=== PATIENT | male | born 1955 | race Caucasian/White ===

== ENCOUNTER 2020-02-12 14:43 | Inpatient (IN) | payer MEDICAID, MEDICARE ==
[2020-02-12] MEDS ORDERED: Sodium Chloride 0.9% 10 ML Syringe FLUSH PRN ×2 (14:51→21:28)
--- NOTE | 2020-02-12 14:59 | EDM.PDOC ---
ED HPI GENERAL MEDICAL PROBLEM - General Chief Complaint: Neuro Symptoms/Deficits Stated Complaint: MEDICAL VIA [facility] Time Seen by Provider: 02/12/20 14:45 Source of Information: Reports: Patient, EMS History Limitations: Reports: Other (minimal records, patient not a good historian) - History of Present Illness INITIAL COMMENTS - FREE TEXT/NARRATIVE: 65 yo male transported by EMS to the ER today for possible new onset L facial droop starting at noon today. He is a relatively new resident of [facility] who has a pHx of a TBA, and a AAA. No other abnormalities reported by staff or EMS. Patient does not have any complaints that are new. He has chronic low back pain. Is a full code. Has a pHx of carotid endarterectomy. 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 (see below) (none) - Related Data Allergies Allergy/AdvReac Type Severity Reaction Status Date / Time ciprofloxacin [From Cipro] Allergy Other Verified 02/12/20 19:31 Home Meds: Home Meds Albuterol/Ipratropium [Combivent Respimat] 1 puff IH QID 02/12/20 [History] Cholecalciferol (Vitamin D3) [Vitamin D] 1,000 units PO DAILY 02/12/20 [History] Clopidogrel Bisulfate [Plavix] 75 mg PO DAILY 02/12/20 [History] DULoxetine [Cymbalta] 60 mg PO DAILY 02/12/20 [History] Finasteride 5 mg PO DAILY 02/12/20 [History] Ibuprofen [Motrin] 600 mg PO Q8H PRN 02/12/20 [History] Lidocaine 5% [Lidoderm 5%] 1 patch TOP Q12HR 02/12/20 [History] Mirtazapine [Remeron] 15 mg PO BEDTIME 02/12/20 [History] Tiotropium [Spiriva] 2 puff INH DAILY 02/12/20 [History] lisinopriL [Lisinopril] 10 mg PO DAILY 02/12/20 [History] risperiDONE [RisperiDAL] 3 mg PO BID 02/12/20 [History] ED ROS GENERAL - Review of Systems Review Of Systems: See Below Constitutional: Reports: No Symptoms HEENT: Reports: No Symptoms Respiratory: Reports: No Symptoms Cardiovascular: Reports: No Symptoms GI/Abdominal: Reports: No Symptoms : Reports: No Symptoms Musculoskeletal: Reports: No Symptoms Skin: Reports: No Symptoms Neurological: Reports: Other (L facial droop ? new) ED EXAM, NEURO - Physical Exam Exam: See Below Exam Limited By: Uncooperative (not fully cooperative) General Appearance: Alert, WD/WN, No Apparent Distress Eye Exam: Bilateral Eye: Normal Inspection Ears: Normal External Exam, Normal Canal, Hearing Grossly Normal Nose: Normal Inspection, No Blood Throat/Mouth: Normal Inspection, Normal Lips, Normal Oropharynx, Normal Voice, No Airway Compromise Head Exam: Atraumatic, Other (L facial droop) Neck: Normal Inspection, Non-Tender Respiratory/Chest: No Respiratory Distress, Lungs Clear, Normal Breath Sounds, No Accessory Muscle Use Cardiovascular: Regular Rate, Rhythm, No Edema GI/Abdominal: Normal Bowel Sounds, Soft, Non-Tender, No Distention Neurological: Alert, Oriented x 3, Other (L facial droop, weak gag reflex) Back Exam: Normal Inspection Extremities: Normal Inspection, Normal Range of Motion, Non-Tender, No Pedal Edema Psychiatric: Normal Affect, Normal Mood Skin Exam: Warm, Dry, Intact, Normal Color, No Rash #1 Interpretation EKG Date: 02/12/20 Time: 17:15 Rhythm: NSR Rate (Beats/Min): 70 Gordon: Normal P-Wave: Present (prolonged [place] interval.) QRS: Normal (poor R wave progression anterior leads.) ST-T: Normal QT: Normal Comparison: NA - No Prior EKG Course - Vital Signs Text/Narrative:: Dr. Luu called @ 1940h Last Recorded V/S: Last Vital Signs Temp 37.3 C 02/12/20 19:26 Pulse 84 02/12/20 19:26 Resp 27 H 02/12/20 19:26 BP 127/77 02/12/20 19:26 Pulse Ox 92 L 02/12/20 19:26 - Orders/Labs/Meds Orders: Active Orders 24 hr Category Date Time Status Cardiac Monitoring [RC] .As Directed Care 02/12/20 14:50 Active EKG Documentation Completion [RC] ASDIRECTED Care 02/12/20 16:57 Active DRUG SCREEN, URINE [URCHEM] Stat Lab 02/12/20 18:27 Ordered UA W/MICROSCOPIC [URIN] Stat Lab 02/12/20 14:49 Ordered Iopamidol [Isovue-370 (76%)] Med 02/12/20 15:45 Active 100 ml IV . DIRECTED Lactated Ringers [Ringers, Lactated] 1,000 ml Med 02/12/20 17:45 Active IV ASDIRECTED Ondansetron [Zofran] Med 02/12/20 19:46 Once 4 mg IVPUSH ONETIME ONE Sodium Chloride 0.9% [Normal Saline] 100 ml Med 02/12/20 15:45 Active IV ASDIRECTED Sodium Chloride 0.9% [Saline Flush] Med 02/12/20 14:51 Active 10 ml FLUSH ASDIRECTED PRN Saline Lock Insert [OM.PC] Routine Oth 02/12/20 14:51 Ordered EKG 12 Lead [EK] Routine Ther 02/12/20 16:57 Ordered Medication Orders Sodium Chloride (Normal Saline) 100 mls @ 3 mls/sec IV ASDIRECTED ALFREDITO Last Admin: 02/12/20 16:06 Dose: 4 mls/sec Documented by: REMY Lactated Ringer's (Ringers, Lactated) 1,000 mls @ 150 mls/hr IV ASDIRECTED ALFREDITO Iopamidol (Isovue-370 (76%)) 100 ml IV . DIRECTED ALFREDITO Last Admin: 02/12/20 16:06 Dose: 100 ml Documented by: REMY Ondansetron HCl (Zofran) 4 mg IVPUSH ONETIME ONE Stop: 02/12/20 19:47 Sodium Chloride (Saline Flush) 10 ml FLUSH ASDIRECTED PRN PRN Reason: Keep Vein Open Last Admin: 02/12/20 16:06 Dose: 10 ml Documented by: REMY Labs: Laboratory Tests 02/12/20 02/12/20 02/12/20 Range/Units 14:55 14:55 18:15 WBC 7.0 (4.5-11.0) K/uL RBC 4.87 (4.30-5.90) M/uL Hgb 14.6 (12.0-15.0) g/dL Hct 44.1 (40.0-54.0) % MCV 91 (80-98) fL MCH 30 (27-31) pg MCHC 33 (32-36) % Plt Count 250 (150-400) K/uL Sodium 138 L (140-148) mmol/L Potassium 4.4 (3.6-5.2) mmol/L Chloride 104 (100-108) mmol/L Carbon Dioxide 23 (21-32) mmol/L Anion Gap 15.4 H (5.0-14.0) mmol/L BUN 35 H (7-18) mg/dL Creatinine 1.4 H (0.8-1.3) mg/dL Est Cr Clr Drug Dosing TNP Estimated GFR (MDRD) 51 L (>60) Glucose 96 (74-106) mg/dL Calcium 9.1 (8.5-10.1) mg/dL Troponin I < 0.017 (0.000-0.056) ng/mL Ethyl Alcohol mg/dL SARS-CoV-2 RNA (KAROLYN) Positive H (NEGATIVE) 02/12/20 Range/Units 18:27 WBC (4.5-11.0) K/uL RBC (4.30-5.90) M/uL Hgb (12.0-15.0) g/dL Hct (40.0-54.0) % MCV (80-98) fL MCH (27-31) pg MCHC (32-36) % Plt Count (150-400) K/uL Sodium (140-148) mmol/L Potassium (3.6-5.2) mmol/L Chloride (100-108) mmol/L Carbon Dioxide (21-32) mmol/L Anion Gap (5.0-14.0) mmol/L BUN (7-18) mg/dL Creatinine (0.8-1.3) mg/dL Est Cr Clr Drug Dosing Estimated GFR (MDRD) (>60) Glucose (74-106) mg/dL Calcium (8.5-10.1) mg/dL Troponin I (0.000-0.056) ng/mL Ethyl Alcohol 6 mg/dL SARS-CoV-2 RNA (KAROLYN) (NEGATIVE) Meds: Medications Generic Name Dose Route Start Last Admin Trade Name Freq PRN Reason Stop Dose Admin Sodium Chloride 100 mls @ 3 mls/sec 02/12/20 15:45 02/12/20 16:06 Normal Saline IV 4 mls/sec ASDIRECTED ALFREDITO Administration Lactated Ringer's 1,000 mls @ 150 mls/hr 02/12/20 17:45 Ringers, Lactated IV ASDIRECTED ALFREDITO Iopamidol 100 ml 02/12/20 15:45 02/12/20 16:06 Isovue-370 (76%) IV 100 ml . DIRECTED ALFREDITO Administration Ondansetron HCl 4 mg 02/12/20 19:46 Zofran IVPUSH 02/12/20 19:47 ONETIME ONE Sodium Chloride 10 ml 02/12/20 14:51 02/12/20 16:06 Saline Flush FLUSH 10 ml ASDIRECTED PRN Administration Keep Vein Open Discontinued Medications Generic Name Dose Route Start Last Admin Trade Name Freq PRN Reason Stop Dose Admin Nystatin 1 gm 02/12/20 19:04 Nystop TOP 02/12/20 19:05 NOW STA - Radiology Interpretation Free Text/Narrative:: Head CT scan-IMPRESSION: 1. No evidence of acute cortical infarct. No intracranial hemorrhage. 2. Large regions of encephalomalacia in the right inferior frontal lobe and right inferior temporal lobe may be secondary to chronic contusions versus infarcts. Chronic infarcts in the basal ganglia, caudate nuclei, and alexander radiata. 3. Moderate parenchymal volume loss and advanced chronic microangiopathic white matter changes. Please note that all CT scans at this facility use dose modulation, iterative r econstruction, and/or weight-based dosing when appropriate to reduce radiation dose to as low as reasonably achievable. Dictated by Tramaine Morris MD @ Feb 12 2020 4:03PM Angio Head/neck: Scattered atherosclerotic changes, most severe in the right carotid bulb where there is a severe stenosis of the carotid bulb with irregular luminal narrowing. No large vessel occlusions. 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 Read by: Chandu Dodge MD @ 02/12/2020 16:58:07 CT Results Date: 02/12/20 CT Results Time: 17:02 - Re-Assessments/Exams Free Text/Narrative Re-Assessment/Exam: 02/12/20 16:58 Daughter here, Sohail told her he has a pain in his chest, will get a stat EKG. She thinks he is more sleepy and sluggish than normal. 02/12/20 16:58 Free Text/Narrative Re-Assessment/Exam: 02/12/20 18:29 facial drooping came and went a few times during his stay, his level of alertness also seemed to vary back and forth. Departure - Departure Time of Disposition: 21:55 Disposition: Refer to Observation Clinical Impression: COVID-19, Neurological impairment, Mild dehydration - Discharge Information *PRESCRIPTION DRUG MONITORING PROGRAM REVIEWED*: No *COPY OF PRESCRIPTION DRUG MONITORING REPORT IN PATIENT GALINA: No Referrals: PCP,None [Primary Care Provider] - Forms: ED Department Discharge Sepsis Event Note (ED) - Focused Exam Vital Signs: Vital Signs Temp Pulse Resp BP Pulse Ox 02/12/20 19:26 37.3 C 84 27 H 127/77 92 L 02/12/20 16:16 37.3 C 70 20 117/73 97 02/12/20 16:11 37.3 C 69 21 H 117/73 96 - My Orders Last 24 Hours: My Active Orders 02/12/20 14:49 UA W/MICROSCOPIC [URIN] Stat 02/12/20 14:50 Cardiac Monitoring [RC] .As Directed 02/12/20 14:51 Sodium Chloride 0.9% [Saline Flush] 10 ml FLUSH ASDIRECTED PRN Saline Lock Insert [OM.PC] Routine 02/12/20 15:45 Iopamidol [Isovue-370 (76%)] 100 ml IV . DIRECTED Sodium Chloride 0.9% [Normal Saline] 100 ml IV ASDIRECTED 02/12/20 16:57 EKG Documentation Completion [RC] ASDIRECTED EKG 12 Lead [EK] Routine 02/12/20 17:45 Lactated Ringers [Ringers, Lactated] 1,000 ml IV ASDIRECTED 02/12/20 18:27 DRUG SCREEN, URINE [URCHEM] Stat 02/12/20 19:46 Ondansetron [Zofran] 4 mg IVPUSH ONETIME ONE - Assessment/Plan Last 24 Hours: My Active Orders 02/12/20 14:49 UA W/MICROSCOPIC [URIN] Stat 02/12/20 14:50 Cardiac Monitoring [RC] .As Directed 02/12/20 14:51 Sodium Chloride 0.9% [Saline Flush] 10 ml FLUSH ASDIRECTED PRN Saline Lock Insert [OM.PC] Routine 02/12/20 15:45 Iopamidol [Isovue-370 (76%)] 100 ml IV . DIRECTED Sodium Chloride 0.9% [Normal Saline] 100 ml IV ASDIRECTED 02/12/20 16:57 EKG Documentation Completion [RC] ASDIRECTED EKG 12 Lead [EK] Routine 02/12/20 17:45 Lactated Ringers [Ringers, Lactated] 1,000 ml IV ASDIRECTED 02/12/20 18:27 DRUG SCREEN, URINE [URCHEM] Stat 02/12/20 19:46 Ondansetron [Zofran] 4 mg IVPUSH ONETIME ONE
[2020-02-12] MEDS ORDERED: Iopamidol 755 Mg/ML 100 ML Bottle IV SCH (15:45)
[2020-02-12] MEDS ORDERED: Sodium Chloride 0.9% 100 ML IV SCH (15:45)
--- NOTE | 2020-02-12 16:08 | CRLCT ---
INDICATION: Stroke alert. Left facial droop. TECHNIQUE: CT of the head without contrast. Coronal and sagittal reformats. Bone and soft tissue algorithms. COMPARISON: No prior studies available for comparison at this institution. FINDINGS: No acute intracranial hemorrhage or extra-axial collection. No evidence of acute cortical infarction. Large region of encephalomalacia involving the right inferior frontal lobe and right inferior temporal lobe may be secondary to chronic contusions versus infarcts. There is encephalomalacia to lesser extent in the left inferior frontal lobe. Chronic infarcts in the bilateral basal ganglia, bilateral caudate nuclei and alexander radiata. No mass effect or midline shift. Moderate generalized cerebral/cerebellar parenchymal volume loss. Moderate regions of decreased attenuation within the periventricular and subcortical white matter of both cerebral hemispheres most likely reflects chronic microvascular ischemic disease and age related change in this patient. Vascular calcifications within the carotid siphons. Orbital contents are normal. No calvarial fractures. No lytic or sclerotic osseous lesions within the calvarium or skull base. Scalp and other imaged soft tissue structures are normal. Mastoid air cells are clear. IMPRESSION: 1. No evidence of acute cortical infarct. No intracranial hemorrhage. 2. Large regions of encephalomalacia in the right inferior frontal lobe and right inferior temporal lobe may be secondary to chronic contusions versus infarcts. Chronic infarcts in the basal ganglia, caudate nuclei, and alexander radiata. 3. Moderate parenchymal volume loss and advanced chronic microangiopathic white matter changes. Please note that all CT scans at this facility use dose modulation, iterative reconstruction, and/or weight-based dosing when appropriate to reduce radiation dose to as low as reasonably achievable. Dictated by Tramaine Morris MD @ Feb 12 2020 4:03PM Signed by Dr. Tramaine Morris @ Feb 12 2020 4:08PM
--- NOTE | 2020-02-12 16:58 | CRLCT ---
INDICATION: Left facial droop. TECHNIQUE: After standard noncontrast head CT, high resolution axial CT images acquired through the head and neck following rapid intravenous administration of iodinated contrast. Multiplanar MIPS of cranial and cervical vasculature performed. FINDINGS: There is no intracranial hemorrhage or fluid collection. Old lacunar infarcts are noted in the basal ganglia and deep white matter bilaterally. There is marked brain parenchymal volume loss. There is encephalomalacia in the right frontal lobe and anterior right temporal lobe, probably from an old traumatic injury. There are extensive nonspecific white matter hypodensities commonly seen with chronic small vessel ischemic disease. The gonzalez-white matter differentiation is otherwise grossly maintained. The ventricles and basal cisterns are clear. Angiographically, there is scattered intracranial atherosclerotic disease. There is no significant intracranial stenosis. There is no large vessel occlusion. There is a possible small anterior communicating artery aneurysm, difficult to discern due to artifact. In the neck, there is a large soft plaque in the distal right common carotid artery that results in a severe stenosis, greater than 70 percent by NASCET criteria. Additionally, there is a severe stenosis of the origin of the right internal carotid artery due to soft plaque resulting in a 99 percent stenosis by NASCET criteria with narrowing of the distal vasculature (string sign). There is no significant left carotid stenosis. There is no significant vertebral artery stenosis or dissection. 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 Severe emphysematous changes are present in the visualized lung apices. IMPRESSION: 1. Scattered intracranial atherosclerotic disease with no large vessel occlusion. 2. Severe right carotid stenosis with string sign, 99 percent by NASCET criteria. 3. 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 4. Severe emphysema. 5. Old right frontal and temporal encephalomalacia, probably old trauma. 6. Extensive chronic small vessel ischemic disease and old lacunar infarcts. 7. 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 Please note that all CT scans at this facility use dose modulation, iterative reconstruction, and/or weight-based dosing when appropriate to reduce radiation dose to as low as reasonably achievable. Dictated by Macario Boyce MD @ Feb 13 2020 10:38AM Signed by Dr. Macario Boyce @ Feb 13 2020 10:51AM
[2020-02-12] MEDS ORDERED: Lactated Ringers 1,000 ML IV SCH (17:45)
[2020-02-12] MEDS ORDERED: Nystatin Topical Powder 15 GM Bottle TOP STA (19:04)
[2020-02-12] MEDS ORDERED: Ondansetron 4 MG/2 ML SDV IVPUSH ONE (19:46)
--- NOTE | 2020-02-12 21:07 | PCM.HP.2 ---
H&P History of Present Illness - General Date of Service: 02/12/20 Admit Problem/Dx: Admission Diagnosis/Problem Admission Diagnosis/Problem TIA, Transient ischemic attack Source of Information: Patient, Family, Provider, RN Notes Reviewed History Limitations: Reports: Other (Cognitive impairment secondary to dementia) - History of Present Illness Initial Comments - Free Text/Narative: Mr. Kern is a 65-year-old gentleman who was admitted to observation status through the emergency department for monitoring of neurologic status and positive COVID-19. He has a history of multiple severe medical problems including coronary artery disease, status post surgical repair of aortic aneurysm, traumatic brain injury, cerebrovascular disease status post left carotid endarterectomy, and COPD. He also has a known history of early onset dementia which has progressed significantly over the past few months. Today he was noted by staff at the assisted living to have left-sided weakness and was brought to the emergency department for further evaluation. He was noted to [place] left upper and lower extremity weakness as well as left facial weakness. Weakness has resolved. Covid testing done in the emergency department is positive, currently no obvious symptoms or hypoxia. CT scan of the head showed evidence of old damage from traumatic brain injury as well as previous CVAs. CTA of the neck and brain shows evidence of severe right carotid stenosis. Findings have been discussed with the neurologist on-call in [place], they recommended obtaining MRI in the morning. If the MRI shows evidence of acute right sided CVA, then they would consider accepting him in transfer for treatment of the right carotid stenosis. Otherwise the stenosis could be addressed on an outpatient basis. I have discussed current findings and reviewed them with his daughter who is his guardian. She is decided that he should be DNR/DNI and feels that this is consistent with his previously expressed wishes. She is unsure about how to proceed as far as evaluation of his cerebrovascular disease; aggressive intervention versus comfort cares. - Related Data Allergies/Adverse Reactions: Allergies Allergy/AdvReac Type Severity Reaction Status Date / Time ciprofloxacin [From Cipro] Allergy Other Verified 02/12/20 19:31 Home Medications: Home Meds Albuterol/Ipratropium [Combivent Respimat] 1 puff IH QID 02/12/20 [History] Cholecalciferol (Vitamin D3) [Vitamin D] 1,000 units PO DAILY 02/12/20 [History] Clopidogrel Bisulfate [Plavix] 75 mg PO DAILY 02/12/20 [History] DULoxetine [Cymbalta] 60 mg PO DAILY 02/12/20 [History] Finasteride 5 mg PO DAILY 02/12/20 [History] Ibuprofen [Motrin] 600 mg PO Q8H PRN 02/12/20 [History] Lidocaine 5% [Lidoderm 5%] 1 patch TOP Q12HR 02/12/20 [History] Mirtazapine [Remeron] 15 mg PO BEDTIME 02/12/20 [History] Tiotropium [Spiriva] 2 puff INH DAILY 02/12/20 [History] lisinopriL [Lisinopril] 10 mg PO DAILY 02/12/20 [History] risperiDONE [RisperiDAL] 3 mg PO BID 02/12/20 [History] Past Medical History Cardiovascular History: Reports: CAD, Other (See Below) Other Cardiovascular History: cardiac stenosis Respiratory History: Reports: COPD Musculoskeletal History: Reports: Back Pain, Chronic, Fracture Neurological History: Reports: Brain Injury Psychiatric History: Reports: Aggressive/Hostile Behaviors, Alzheimers Disease, PTSD - Past Surgical History Cardiovascular Surgical History: Reports: Aneurysm Social & Family History - Tobacco Use Tobacco Use Status *Q: Unknown Ever Used Tobacco H&P Review of Systems - Review of Systems: Review Of Systems: See Below General: Reports: ROS unobtainable (Cognitive impairment secondary to dementia) Exam - Exam Exam: See Below - Vital Signs Vital Signs: Last Vital Signs Temp 98.8 F 02/12/20 20:16 Pulse 72 02/12/20 20:16 Resp 16 02/12/20 20:16 BP 128/67 02/12/20 20:16 Pulse Ox 92 L 02/12/20 20:16 Weight: 189 lb - Exam Quality Assessment: DVT Prophylaxis General: Alert, Cooperative, Mild Distress. No: Oriented HEENT: Conjunctiva Clear, Hearing Intact, Mucosa Moist & [place], Normal Nasal Septum, Posterior Pharynx Clear, Pupils Equal Neck: Supple, Trachea Midline Lungs: Decreased Breath Sounds. No: Crackles, Rales, Rhonchi, Wheezing Cardiovascular: Regular Rate, Regular Rhythm, Normal S1, Normal S2. No: Systolic Murmur, Diastolic Murmur GI/Abdominal Exam: Soft, Non-Tender, No Organomegaly, No Distention Back Exam: Normal Inspection, Vertebral Tenderness Extremities: Normal Inspection, Non-Tender, No Pedal Edema Skin: Warm, Dry, Intact Neurological: Cranial Nerves Intact, Strength Equal Bilateral, Normal Speech, Normal Tone, Sensation Intact. No: Focal Deficit Neuro Extensive - Mental Status: Alert, Normal Mood/Affect, Disorientation to Place, Disorientation to Time, Memory Loss-Remote Events, Memory Loss-Recent Events. No: Oriented x3, Normal Cognition, Memory Intact - Patient Data Lab Results Last 24 hrs: Laboratory Results - last 24 hr 02/12/20 02/12/20 02/12/20 Range/Units 14:55 14:55 18:15 WBC 7.0 (4.5-11.0) K/uL RBC 4.87 (4.30-5.90) M/uL Hgb 14.6 (12.0-15.0) g/dL Hct 44.1 (40.0-54.0) % MCV 91 (80-98) fL MCH 30 (27-31) pg MCHC 33 (32-36) % Plt Count 250 (150-400) K/uL Sodium 138 L (140-148) mmol/L Potassium 4.4 (3.6-5.2) mmol/L Chloride 104 (100-108) mmol/L Carbon Dioxide 23 (21-32) mmol/L Anion Gap 15.4 H (5.0-14.0) mmol/L BUN 35 H (7-18) mg/dL Creatinine 1.4 H (0.8-1.3) mg/dL Est Cr Clr Drug Dosing TNP Estimated GFR (MDRD) 51 L (>60) Glucose 96 (74-106) mg/dL Calcium 9.1 (8.5-10.1) mg/dL Troponin I < 0.017 (0.000-0.056) ng/mL Ethyl Alcohol mg/dL SARS-CoV-2 RNA (KAROLYN) Positive H (NEGATIVE) 02/12/20 Range/Units 18:27 WBC (4.5-11.0) K/uL RBC (4.30-5.90) M/uL Hgb (12.0-15.0) g/dL Hct (40.0-54.0) % MCV (80-98) fL MCH (27-31) pg MCHC (32-36) % Plt Count (150-400) K/uL Sodium (140-148) mmol/L Potassium (3.6-5.2) mmol/L Chloride (100-108) mmol/L Carbon Dioxide (21-32) mmol/L Anion Gap (5.0-14.0) mmol/L BUN (7-18) mg/dL Creatinine (0.8-1.3) mg/dL Est Cr Clr Drug Dosing Estimated GFR (MDRD) (>60) Glucose (74-106) mg/dL Calcium (8.5-10.1) mg/dL Troponin I (0.000-0.056) ng/mL Ethyl Alcohol 6 mg/dL SARS-CoV-2 RNA (KAROLYN) (NEGATIVE) Result Diagrams: 02/12/20 14:55 02/12/20 14:55 Sepsis Event Note - Evaluation Sepsis Screening Result: No Definite Risk - Focused Exam Vital Signs: Vital Signs Temp Pulse Resp BP Pulse Ox 02/12/20 20:16 98.8 F 72 16 128/67 92 L 02/12/20 19:26 99.2 F 84 27 H 127/77 92 L 02/12/20 16:16 99.1 F 70 20 117/73 97 02/12/20 16:11 99.1 F 69 21 H 117/73 96 *Q Meaningful Use (ADM) - VTE Risk Assess *Q Each Risk Factor Represents 1 Point: Abnormal Pulmonary Function (COPD) Total Score 1 Point Risk Factors: 1 Each Risk Factor Represents 2 Points: Age 60 - 74 Years Total Score 2 Point Risk Factors: 2 Each Risk Factor Represents 3 Points: None Total Score 3 Point Risk Factors: 0 Each Risk Factor Represents 5 Points: None Total Score 5 Point Risk Factors: 0 Venous Thromboembolism Risk Factor Score *Q: 3 Problem List Initiated/Reviewed/Updated: Yes Orders Last 24hrs: Active Orders 24 hr Category Date Time Status Patient Status Manage Transfer [TRANSFER] Routine ADT 02/12/20 20:04 Active Cardiac Monitoring [RC] .As Directed Care 02/12/20 14:50 Active EKG Documentation Completion [RC] ASDIRECTED Care 02/12/20 16:57 Active DRUG SCREEN, URINE [URCHEM] Stat Lab 02/12/20 18:27 Ordered UA W/MICROSCOPIC [URIN] Stat Lab 02/12/20 14:49 Ordered Iopamidol [Isovue-370 (76%)] Med 02/12/20 15:45 Active 100 ml IV . DIRECTED Lactated Ringers [Ringers, Lactated] 1,000 ml Med 02/12/20 17:45 Active IV ASDIRECTED Sodium Chloride 0.9% [Normal Saline] 100 ml Med 02/12/20 15:45 Active IV ASDIRECTED Sodium Chloride 0.9% [Saline Flush] Med 02/12/20 14:51 Active 10 ml FLUSH ASDIRECTED PRN Saline Lock Insert [OM.PC] Routine Oth 02/12/20 14:51 Ordered Resuscitation Status Routine Resus Stat 02/12/20 20:56 Ordered EKG 12 Lead [EK] Routine Ther 02/12/20 16:57 Ordered Medication Orders Sodium Chloride (Normal Saline) 100 mls @ 3 mls/sec IV ASDIRECTED ALFREDITO Last Admin: 02/12/20 16:06 Dose: 4 mls/sec Documented by: REMY Lactated Ringer's (Ringers, Lactated) 1,000 mls @ 150 mls/hr IV ASDIRECTED ALFREDITO Iopamidol (Isovue-370 (76%)) 100 ml IV . DIRECTED ALFREDITO Last Admin: 02/12/20 16:06 Dose: 100 ml Documented by: REMY Sodium Chloride (Saline Flush) 10 ml FLUSH ASDIRECTED PRN PRN Reason: Keep Vein Open Last Admin: 02/12/20 16:06 Dose: 10 ml Documented by: REMY Assessment/Plan Comment:: ASSESSMENT AND PLAN TIA-transient left-sided weakness today, associated with severe right carotid stenosis. He will be monitored overnight, with MRI in a.m. Family is not sure if they want to proceed with aggressive intervention and evaluation, they will be discussing this further. -Continue Plavix -Aspirin 81 mg p.o. daily -MRI of the brain with contrast in the a.m. -Further discussion with family concerning evaluation and management -Neurochecks every 4 hours [id number] no active symptoms or hypoxia -Supportive care SEVERE RIGHT CAROTID STENOSIS -Evaluation and management as above MAINTENANCE ISSUES -DVT prophylaxis; Lovenox 40 mg subcu daily -GI prophylaxis; not indicated -Son catheter; not indicated -Nutrition; 2 g sodium diet -Nicotine dependence; not required CODE STATUS-DNR/DNI ADMISSION STATUS-this patient will be admitted to observation status, expect no more than a one night hospital stay for evaluation and management of problems as outlined above. DISPOSITION-anticipate discharge to home after the hospital stay. PRIMARY CARE PROVIDER- - Mortality Measure Prognosis:: Poor
[2020-02-12] MEDS ORDERED: Lidocaine 5% 700 MG Patch TOP SCH (21:28)
[2020-02-12] MEDS ORDERED: RISPERIDONE 3 MG PO SCH (21:28)
[2020-02-12] MEDS ORDERED: Aspirin 81 MG Tab.Chew PO SCH (21:28)
[2020-02-12] MEDS ORDERED: Ondansetron 4 MG/2 ML SDV IV PRN (21:28)
[2020-02-12] MEDS ORDERED: Enoxaparin 40 MG/0.4 ML Syringe SUBCUT SCH (21:28)
[2020-02-12] MEDS ORDERED: Polyethylene Glycol 3350 Powder 17 GM Packet PO PRN (21:28)
[2020-02-12] MEDS ORDERED: Albuterol/Ipratropium 4 GM Inhalation Spray INH SCH (22:00)
[2020-02-12] MEDS: risperiDONE 1 MG Tab PO SCH (22:36)
[2020-02-12] MEDS: Sodium Chloride 0.9% 1,000 ML IV SCH (22:37)
[2020-02-12] MEDS: Mirtazapine 15 MG Tab PO SCH (22:37)
[2020-02-12] MEDS: Aspirin 81 MG Tab.EC PO SCH (22:38)
[2020-02-12] MEDS ORDERED: Pneumococcal Polyvalent-23 Vaccine 0.5 ML SDV IM ONE (23:08)
[2020-02-13] MEDS: Acetaminophen 325 MG Tab PO PRN (05:22)
[2020-02-13] MEDS ORDERED: Tiotropium Bromide 4 GM Inhalation Spray (2.5mcg/1 dose; 10 doses) INH SCH (07:00)
[2020-02-13] MEDS: Sodium Chloride 0.9% 1,000 ML IV SCH (08:31)
[2020-02-13] MEDS: Tiotropium Bromide 4 GM Inhalation Spray (2.5mcg/1 dose; 10 doses) INH SCH (08:33)
[2020-02-13] MEDS: Aspirin 81 MG Tab.EC PO SCH (08:34)
[2020-02-13] MEDS: Clopidogrel 75 MG Tab PO SCH (08:34)
[2020-02-13] MEDS: risperiDONE 1 MG Tab PO SCH ×2 (08:34→20:38)
[2020-02-13] MEDS: DULoxetine 30 MG Cap PO SCH (08:34)
[2020-02-13] MEDS: Albuterol/Ipratropium 4 GM Inhalation Spray INH SCH ×4 (08:34→20:38)
[2020-02-13] MEDS: Finasteride 5 MG Tab PO SCH (08:34)
[2020-02-13] MEDS: Lisinopril 10 MG Tab PO SCH (08:35)
[2020-02-13] MEDS: Lidocaine 5% 700 MG Patch TOP SCH (08:35)
[2020-02-13] MEDS ORDERED: Non-Formulary Medication 1 Each (Tiotropium [Spiriva Handihaler] 2 PUFF) INH SCH (09:00)
[2020-02-13] MEDS ORDERED: REMDESIVIR 200 MG in Sodium Chloride 0.9% 250 ML IV ONE (10:15)
[2020-02-13] MEDS: Dexamethasone 4 MG/ML SDV IVPUSH SCH (10:42)
--- NOTE | 2020-02-13 15:42 | PCM.PN ---
- General Info Date of Service: 02/13/20 Subjective Update: Mr. Sauceda is continued to intermittently experience some left facial weakness. Family has decided not to pursue further neurologic evaluation or intervention, MRI for today has been canceled. They would like treatment for Covid but no further aggressive intervention or evaluation. He has shown no evidence of respiratory decline with hypoxia during the night and has been started on active management for Covid. He is unable to provide a meaningful history concerning symptoms or review of systems because of his dementia. - Patient Data Vitals - Most Recent: Last Vital Signs Temp 98.8 F 02/13/20 15:13 Pulse 75 02/13/20 15:13 Resp 16 02/13/20 15:13 BP 133/69 02/13/20 15:13 Pulse Ox 95 02/13/20 15:13 Weight - Most Recent: 189 lb I&O - Last 24 Hours: Intake & Output 02/13/20 02/13/20 02/13/20 06:59 14:59 22:59 Intake Total 100 550 230 Output Total 100 Balance 0 550 230 Lab Results Last 24 Hours: Laboratory Results - last 24 hr 02/12/20 02/12/20 02/12/20 Range/Units 14:55 18:15 18:27 WBC (4.5-11.0) K/uL RBC (4.30-5.90) M/uL Hgb (12.0-15.0) g/dL Hct (40.0-54.0) % MCV (80-98) fL MCH (27-31) pg MCHC (32-36) % Plt Count (150-400) K/uL Neut % (Auto) (36-66) % Lymph % (Auto) (24-44) % [place] % (Auto) (2-6) % Eos % (Auto) (2-4) % Baso % (Auto) (0-1) % D-Dimer, Quantitative (0.0-500.0) ng/mL Sodium 138 L (140-148) mmol/L Potassium 4.4 (3.6-5.2) mmol/L Chloride 104 (100-108) mmol/L Carbon Dioxide 23 (21-32) mmol/L Anion Gap 15.4 H (5.0-14.0) mmol/L BUN 35 H (7-18) mg/dL Creatinine 1.4 H (0.8-1.3) mg/dL Est Cr Clr Drug Dosing TNP Estimated GFR (MDRD) 51 L (>60) Glucose 96 (74-106) mg/dL Calcium 9.1 (8.5-10.1) mg/dL Ferritin (8-388) ng/ml Total Bilirubin (0.2-1.0) mg/dL AST (15-37) U/L ALT (12-78) U/L Alkaline Phosphatase (46-116) U/L Troponin I < 0.017 (0.000-0.056) ng/mL C-Reactive Protein (0.0-0.3) mg/dL Total Protein (6.4-8.2) g/dL Albumin (3.4-5.0) g/dL Globulin (2.3-3.5) g/dL Albumin/Globulin Ratio (1.2-2.2) Urine Color (YELLOW) Urine Appearance (CLEAR) Urine pH (5.0-8.0) Ur Specific [place] (1.008-1.030) Urine Protein (NEGATIVE) mg/dL Urine Glucose (UA) (NEGATIVE) mg/dL Urine Ketones (NEGATIVE) mg/dL Urine Occult Blood (NEGATIVE) Urine Nitrite (NEGATIVE) Urine Bilirubin (NEGATIVE) Urine Urobilinogen (0.2-1.0) EU/dL Ur Leukocyte Esterase (NEGATIVE) Urine RBC (0-5) Urine WBC (0-5) Ur Epithelial Cells Amorphous Sediment Urine Bacteria Urine Mucus Urine Opiates Screen (NEGATIVE) Ur Oxycodone Screen (NEGATIVE) Urine Methadone Screen (NEGATIVE) Ur Propoxyphene Screen (NEGATIVE) Ur Barbiturates Screen (NEGATIVE) Ur Tricyclics Screen (NEGATIVE) Ur Phencyclidine Scrn (NEGATIVE) Ur Amphetamine Screen (NEGATIVE) U Methamphetamines Scrn (NEGATIVE) Urine MDMA Screen (NEGATIVE) U Benzodiazepines Scrn (NEGATIVE) U Cocaine Metab Screen (NEGATIVE) U Marijuana (THC) Screen (NEGATIVE) Ethyl Alcohol 6 mg/dL SARS-CoV-2 RNA (KAROLYN) Positive H (NEGATIVE) Blood Type 02/13/20 02/13/20 02/13/20 Range/Units 03:00 03:00 04:50 WBC 6.7 (4.5-11.0) K/uL RBC 4.61 (4.30-5.90) M/uL Hgb 13.8 (12.0-15.0) g/dL Hct 41.8 (40.0-54.0) % MCV 91 (80-98) fL MCH 30 (27-31) pg MCHC 33 (32-36) % Plt Count 282 (150-400) K/uL Neut % (Auto) 74 H (36-66) % Lymph % (Auto) 17 L (24-44) % [place] % (Auto) 9 H (2-6) % Eos % (Auto) 0 L (2-4) % Baso % (Auto) 0 (0-1) % D-Dimer, Quantitative (0.0-500.0) ng/mL Sodium (140-148) mmol/L Potassium (3.6-5.2) mmol/L Chloride (100-108) mmol/L Carbon Dioxide (21-32) mmol/L Anion Gap (5.0-14.0) mmol/L BUN (7-18) mg/dL Creatinine (0.8-1.3) mg/dL Est Cr Clr Drug Dosing Estimated GFR (MDRD) (>60) Glucose (74-106) mg/dL Calcium (8.5-10.1) mg/dL Ferritin (8-388) ng/ml Total Bilirubin (0.2-1.0) mg/dL AST (15-37) U/L ALT (12-78) U/L Alkaline Phosphatase (46-116) U/L Troponin I (0.000-0.056) ng/mL C-Reactive Protein (0.0-0.3) mg/dL Total Protein (6.4-8.2) g/dL Albumin (3.4-5.0) g/dL Globulin (2.3-3.5) g/dL Albumin/Globulin Ratio (1.2-2.2) Urine Color Yellow (YELLOW) Urine Appearance Clear (CLEAR) Urine pH 5.5 (5.0-8.0) Ur Specific [place] >= 1.030 (1.008-1.030) Urine Protein 30 H (NEGATIVE) mg/dL Urine Glucose (UA) Negative (NEGATIVE) mg/dL Urine Ketones Negative (NEGATIVE) mg/dL Urine Occult Blood Trace-intact H (NEGATIVE) Urine Nitrite Negative (NEGATIVE) Urine Bilirubin Negative (NEGATIVE) Urine Urobilinogen 0.2 (0.2-1.0) EU/dL Ur Leukocyte Esterase Negative (NEGATIVE) Urine RBC 0-5 (0-5) Urine WBC 0-5 (0-5) Ur Epithelial Cells Few Amorphous Sediment Not seen Urine Bacteria Few Urine Mucus Not seen Urine Opiates Screen Negative (NEGATIVE) Ur Oxycodone Screen Negative (NEGATIVE) Urine Methadone Screen Negative (NEGATIVE) Ur Propoxyphene Screen Negative (NEGATIVE) Ur Barbiturates Screen Negative (NEGATIVE) Ur Tricyclics Screen Negative (NEGATIVE) Ur Phencyclidine Scrn Negative (NEGATIVE) Ur Amphetamine Screen Negative (NEGATIVE) U Methamphetamines Scrn Negative (NEGATIVE) Urine MDMA Screen Negative (NEGATIVE) U Benzodiazepines Scrn Negative (NEGATIVE) U Cocaine Metab Screen Negative (NEGATIVE) U Marijuana (THC) Screen Negative (NEGATIVE) Ethyl Alcohol mg/dL SARS-CoV-2 RNA (KAROLYN) (NEGATIVE) Blood Type 02/13/20 02/13/20 02/13/20 Range/Units 04:50 04:50 09:55 WBC (4.5-11.0) K/uL RBC (4.30-5.90) M/uL Hgb (12.0-15.0) g/dL Hct (40.0-54.0) % MCV (80-98) fL MCH (27-31) pg MCHC (32-36) % Plt Count (150-400) K/uL Neut % (Auto) (36-66) % Lymph % (Auto) (24-44) % [place] % (Auto) (2-6) % Eos % (Auto) (2-4) % Baso % (Auto) (0-1) % D-Dimer, Quantitative 3847.52 H (0.0-500.0) ng/mL Sodium 138 L (140-148) mmol/L Potassium 4.1 (3.6-5.2) mmol/L Chloride 106 (100-108) mmol/L Carbon Dioxide 24 (21-32) mmol/L Anion Gap 12.1 (5.0-14.0) mmol/L BUN 26 H (7-18) mg/dL Creatinine 1.1 (0.8-1.3) mg/dL Est Cr Clr Drug Dosing 71.53 Estimated GFR (MDRD) > 60 (>60) Glucose 98 (74-106) mg/dL Calcium 8.3 L (8.5-10.1) mg/dL Ferritin 253 (8-388) ng/ml Total Bilirubin 0.2 (0.2-1.0) mg/dL AST 104 H (15-37) U/L ALT 68 (12-78) U/L Alkaline Phosphatase 90 (46-116) U/L Troponin I (0.000-0.056) ng/mL C-Reactive Protein 3.19 H (0.0-0.3) mg/dL Total Protein 6.1 L (6.4-8.2) g/dL Albumin 2.7 L (3.4-5.0) g/dL Globulin 3.4 (2.3-3.5) g/dL Albumin/Globulin Ratio 0.8 L (1.2-2.2) Urine Color (YELLOW) Urine Appearance (CLEAR) Urine pH (5.0-8.0) Ur Specific [place] (1.008-1.030) Urine Protein (NEGATIVE) mg/dL Urine Glucose (UA) (NEGATIVE) mg/dL Urine Ketones (NEGATIVE) mg/dL Urine Occult Blood (NEGATIVE) Urine Nitrite (NEGATIVE) Urine Bilirubin (NEGATIVE) Urine Urobilinogen (0.2-1.0) EU/dL Ur Leukocyte Esterase (NEGATIVE) Urine RBC (0-5) Urine WBC (0-5) Ur Epithelial Cells Amorphous Sediment Urine Bacteria Urine Mucus Urine Opiates Screen (NEGATIVE) Ur Oxycodone Screen (NEGATIVE) Urine Methadone Screen (NEGATIVE) Ur Propoxyphene Screen (NEGATIVE) Ur Barbiturates Screen (NEGATIVE) Ur Tricyclics Screen (NEGATIVE) Ur Phencyclidine Scrn (NEGATIVE) Ur Amphetamine Screen (NEGATIVE) U Methamphetamines Scrn (NEGATIVE) Urine MDMA Screen (NEGATIVE) U Benzodiazepines Scrn (NEGATIVE) U Cocaine Metab Screen (NEGATIVE) U Marijuana (THC) Screen (NEGATIVE) Ethyl Alcohol mg/dL SARS-CoV-2 RNA (KAROLYN) (NEGATIVE) Blood Type A POSITIVE Med Orders - Current: Current Medications Acetaminophen (Tylenol) 650 mg PO Q4H PRN PRN Reason: Pain (Mild 1-3)/fever Last Admin: 02/13/20 05:22 Dose: 650 mg Documented by: Albuterol/Ipratropium (Combivent Respimat) 0 gm INH QIDRT ALFREDITO Last Admin: 02/13/20 15:20 Dose: 1 puff Documented by: Aspirin (Halfprin) 81 mg PO DAILY [facility] Last Admin: 02/13/20 08:34 Dose: 81 mg Documented by: Clopidogrel Bisulfate (Plavix) 75 mg PO DAILY [facility] Last Admin: 02/13/20 08:34 Dose: 75 mg Documented by: Dexamethasone (Decadron) 6 mg IVPUSH Q24H [facility] Stop: 02/22/20 10:01 Last Admin: 02/13/20 10:42 Dose: 6 mg Documented by: Duloxetine HCl (Cymbalta) 60 mg PO DAILY [facility] Last Admin: 02/13/20 08:34 Dose: 60 mg Documented by: Enoxaparin Sodium (Lovenox) 40 mg SUBCUT Q24H [facility] Finasteride (Proscar) 5 mg PO DAILY [facility] Last Admin: 02/13/20 08:34 Dose: 5 mg Documented by: Remdesivir 100 mg/ Sodium (Chloride) 100 mls @ 100 mls/hr IV Q24H [facility] Stop: 02/17/20 10:59 Lidocaine (Lidoderm 5%) 700 mg TOP DAILY [facility] Last Admin: 02/13/20 08:35 Dose: 700 mg Documented by: Lisinopril (Prinivil) 10 mg PO DAILY [facility] Last Admin: 02/13/20 08:35 Dose: 10 mg Documented by: Mirtazapine (Remeron) 15 mg PO BEDTIME [facility] Last Admin: 02/12/20 22:37 Dose: 15 mg Documented by: Miscellaneous Information (Remove Patch) 1 ea TRDERM BEDTIME [facility] Ondansetron HCl (Zofran) 4 mg IV Q4H PRN PRN Reason: Nausea/Vomiting Pneumococcal Polyvalent Vaccine (Pneumovax 23) 0.5 ml IM .ONCE ONE Stop: 02/13/20 10:01 Polyethylene Glycol (Miralax) 17 gm PO DAILY PRN PRN Reason: Constipation Risperidone (Risperidal) 3 mg PO BID [facility] Last Admin: 02/13/20 08:34 Dose: 3 mg Documented by: Sodium Chloride (Saline Flush) 10 ml FLUSH ASDIRECTED PRN PRN Reason: Keep Vein Open Tiotropium Helen (Spiriva Respimat) 0 gm INH DAILYRT [facility] Last Admin: 02/13/20 08:33 Dose: 4 gm Documented by: Discontinued Medications Aspirin (Aspirin) 81 mg PO DAILY [facility] Last Admin: 02/12/20 22:38 Dose: 81 mg Documented by: Enoxaparin Sodium (Lovenox) 40 mg SUBCUT DAILY [facility] Last Admin: 02/12/20 22:37 Dose: 40 mg Documented by: Sodium Chloride (Normal Saline) 100 mls @ 3 mls/sec IV ASDIRECTED [facility] Last Admin: 02/12/20 16:06 Dose: 4 mls/sec Documented by: Lactated Ringer's (Ringers, Lactated) 1,000 mls @ 150 mls/hr IV ASDIRECTED ALFREDITO Sodium Chloride (Normal Saline) 1,000 mls @ 75 mls/hr IV ASDIRECTED [facility] Last Admin: 02/13/20 08:31 Dose: 75 mls/hr Documented by: Remdesivir 200 mg/ Sodium (Chloride) 250 mls @ 250 mls/hr IV ONETIME ONE Stop: 02/13/20 11:14 Last Admin: 02/13/20 10:51 Dose: 250 mls/hr Documented by: Iopamidol (Isovue-370 (76%)) 100 ml IV . DIRECTED [facility] Last Admin: 02/12/20 16:06 Dose: 100 ml Documented by: Lidocaine (Lidoderm 5%) mg TOP Q12HR [facility] Non-Formulary Medication (Tiotropium [Spiriva Handihaler]) 2 puff INH DAILY [facility] Non-Formulary Medication (Risperidone [Risperidal]) 3 mg PO BID [facility] Last Admin: 02/12/20 23:05 Dose: Not Given Documented by: Nystatin (Nystop) 1 gm TOP NOW STA Stop: 02/12/20 19:05 Last Admin: 02/12/20 20:10 Dose: 1 applic Documented by: Ondansetron HCl (Zofran) 4 mg IVPUSH ONETIME ONE Stop: 02/12/20 19:47 Last Admin: 02/12/20 20:10 Dose: 4 mg Documented by: Sodium Chloride (Saline Flush) 10 ml FLUSH ASDIRECTED PRN PRN Reason: Keep Vein Open Last Admin: 02/12/20 16:06 Dose: 10 ml Documented by: - Exam Quality Assessment: Supplemental Oxygen, DVT Prophylaxis General: Alert, Cooperative, Mild Distress. No: Oriented Lungs: Normal Respiratory Effort, Rales. No: Crackles, Rhonchi, Wheezing Cardiovascular: Regular Rate, Regular Rhythm, No Murmurs GI/Abdominal Exam: Soft, Non-Tender, No Organomegaly, No Distention Extremities: Non-Tender, No Pedal Edema Neurological: No: Cranial Nerves Intact (Left facial weakness) Sepsis Event Note - Evaluation Sepsis Screening Result: No Definite Risk - Focused Exam Vital Signs: Vital Signs Temp Temp Pulse Resp BP BP Pulse Ox 02/13/20 15:13 98.8 F 75 16 133/69 95 02/13/20 14:51 98.5 F 74 16 123/72 94 L 02/13/20 14:21 98.7 F 74 16 133/71 94 L 02/13/20 14:06 98.7 F 64 16 125/74 92 L 02/13/20 13:51 99.0 F 71 16 123/66 93 L 02/13/20 13:36 99.2 F 67 16 128/73 93 L 02/13/20 10:57 98.9 F 65 16 115/57 L 92 L 02/13/20 09:53 18 94 L 02/13/20 08:35 118/72 02/13/20 08:00 98.1 F 68 16 118/72 91 L - Problem List Review Problem List Initiated/Reviewed/Updated: Yes - My Orders Last 24 Hours: My Active Orders 02/12/20 Dinner 2 Gram Sodium Diet [DIET] 02/12/20 20:56 Resuscitation Status Routine 02/12/20 21:28 Acetaminophen [TylenoL] 650 mg PO Q4H PRN Mirtazapine [Remeron] 15 mg PO BEDTIME Ondansetron [Zofran] 4 mg IV Q4H PRN Sodium Chloride 0.9% [Saline Flush] 10 ml FLUSH ASDIRECTED PRN polyethylene glycoL 3350 [MiraLAX] 17 gm PO DAILY PRN 02/12/20 21:28 Patient Status [ADT] Routine Ambulate [RC] QID Height and Weight [RC] 0500 Intake and Output [RC] QSHIFT Neuro Check [RC] Q4H Notify Provider Vital Signs [RC] ASDIRECTED Oxygen Therapy [RC] PRN Peripheral IV Care [RC] BID RT Post Treatment Assessment [RC] Click to Edit Up With Assistance [RC] ASDIRECTED Up to Chair [RC] QID Vital Signs [RC] Q4H Peripheral IV Insertion Adult [OM.PC] Routine 02/12/20 22:15 Aspirin [Halfprin] 81 mg PO DAILY 02/12/20 22:30 risperiDONE [RisperiDAL] 3 mg PO BID 02/13/20 07:30 Tiotropium Helen [Spiriva Respimat] 0 gm INH DAILYRT 02/13/20 08:00 Brain w wo Cont [MR] Urgent Albuterol/Ipratropium [Combivent Respimat] 0 gm INH QIDRT 02/13/20 09:00 Clopidogrel [Plavix] 75 mg PO DAILY DULoxetine [Cymbalta] 60 mg PO DAILY Finasteride [Proscar] 5 mg PO DAILY Lidocaine 5% [Lidoderm 5%] 700 mg TOP DAILY lisinopriL [Prinivil] 10 mg PO DAILY 02/13/20 09:54 Convert IV to Saline Lock [OM.PC] Routine 02/13/20 09:55 Verify Patient Consent Obtain [RC] ASDIRECTED Transfuse Fresh Frozen Plasma [COMM] DAILY 02/13/20 10:00 Pneumococcal Polyvalent-23 Vac [Pneumovax 23] 0.5 ml IM .ONCE ONE dexAMETHasone [Decadron] 6 mg IVPUSH Q24H 02/13/20 21:00 Enoxaparin [Lovenox] 40 mg SUBCUT Q24H Remove Patch 1 ea TRDERM BEDTIME 02/14/20 05:00 CBC WITH AUTO DIFF [HEME] Timed COMPREHENSIVE METABOLIC PN,CMP [CHEM] Timed 02/14/20 05:11 CRP [C-REACTIVE PROTEIN] [CHEM] AM D Dimer [D-DIMER QUANTITATIVE] [COAG] AM FERRITIN [CHEM] AM 02/14/20 09:55 FRESH FROZEN PLASMA [BBK] DAILY Transfuse Fresh Frozen Plasma [COMM] DAILY 02/14/20 10:00 Remdesivir (Eua) [Remdesivir (EUA)] 100 mg Sodium Chloride 0.9% [Normal Saline] 100 ml IV Q24H 02/15/20 09:55 FRESH FROZEN PLASMA [BBK] DAILY Transfuse Fresh Frozen Plasma [COMM] DAILY - Plan Plan:: ASSESSMENT AND PLAN TIA-recurrent left facial weakness with underlying severe right carotid stenosis. Family has decided not to pursue further aggressive intervention or evaluation of current neurologic symptoms or right carotid stenosis -Continue Plavix -Aspirin 81 mg p.o. daily COVID-19-he has developed hypoxia since admission and is currently requiring supplemental oxygen -Remdesivir 200 mg IV today, then 100 mg IV daily x4 days, today is day 1 of 5 -Convalescent plasma 1 unit daily x3 days, days day 1 of 3 -Decadron 6 mg IV daily x10 days, today is day 1 of 10 -Supportive care SEVERE RIGHT CAROTID STENOSIS -Evaluation and management as above MAINTENANCE ISSUES -DVT prophylaxis; Lovenox 40 mg subcu daily -GI prophylaxis; not indicated -Son catheter; not indicated -Nutrition; 2 g sodium diet -Nicotine dependence; not required CODE STATUS-DNR/DNI ADMISSION STATUS-this patient will be admitted to observation status, expect no more than a one night hospital stay for evaluation and management of problems as outlined above. DISPOSITION-anticipate discharge to home after the hospital stay. PRIMARY CARE PROVIDER-
[2020-02-13] MEDS: Mirtazapine 15 MG Tab PO SCH (20:38)
[2020-02-13] MEDS: Enoxaparin 40 MG/0.4 ML Syringe SUBCUT SCH (20:39)
[2020-02-13] MEDS ORDERED: Albuterol/Ipratropium 3.0-0.5 MG/3 ML Neb Soln NEB SCH (22:15)
[2020-02-14] MEDS: Tiotropium Bromide 4 GM Inhalation Spray (2.5mcg/1 dose; 10 doses) INH SCH (08:18)
[2020-02-14] MEDS: Albuterol/Ipratropium 4 GM Inhalation Spray INH SCH ×4 (08:18→21:10)
[2020-02-14] MEDS: risperiDONE 1 MG Tab PO SCH ×2 (08:21→21:10)
[2020-02-14] MEDS: DULoxetine 30 MG Cap PO SCH (08:21)
[2020-02-14] MEDS: Clopidogrel 75 MG Tab PO SCH (08:22)
[2020-02-14] MEDS: Lidocaine 5% 700 MG Patch TOP SCH ×2 (08:22→15:02)
[2020-02-14] MEDS: Lisinopril 10 MG Tab PO SCH (08:22)
[2020-02-14] MEDS: Finasteride 5 MG Tab PO SCH (08:22)
[2020-02-14] MEDS: Aspirin 81 MG Tab.EC PO SCH (08:22)
[2020-02-14] MEDS: Dexamethasone 4 MG/ML SDV IVPUSH SCH (09:28)
[2020-02-14] MEDS: REMDESIVIR 100 MG in Sodium Chloride 0.9% 100 ML IV SCH (10:32)
--- NOTE | 2020-02-14 14:10 | PCM.PN ---
- General Info Date of Service: 02/14/20 Subjective Update: Mr. Kern has been stable over the last 24 hours. Have been within desired range on current level of supplemental oxygen and he has shown no obvious evidence of deterioration. He is unable to provide a meaningful history concerning symptoms or review of systems because of his dementia. - Patient Data Vitals - Most Recent: Last Vital Signs Temp 98.1 F 02/14/20 11:24 Pulse 62 02/14/20 11:24 Resp 16 02/14/20 11:24 BP 133/67 02/14/20 11:24 Pulse Ox 94 L 02/14/20 11:24 Weight - Most Recent: 189 lb I&O - Last 24 Hours: Intake & Output 02/13/20 02/14/20 02/14/20 22:59 06:59 14:59 Intake Total 710 100 Output Total 300 Balance 710 -200 Lab Results Last 24 Hours: Laboratory Results - last 24 hr 02/13/20 02/14/20 02/14/20 Range/Units 09:55 05:13 05:13 WBC 4.3 L (4.5-11.0) K/uL RBC 4.43 (4.30-5.90) M/uL Hgb 13.3 (12.0-15.0) g/dL Hct 41.0 (40.0-54.0) % MCV 93 (80-98) fL MCH 30 (27-31) pg MCHC 32 (32-36) % Plt Count 277 (150-400) K/uL Neut % (Auto) 71 H (36-66) % Lymph % (Auto) 16 L (24-44) % [place] % (Auto) 13 H (2-6) % Eos % (Auto) 0 L (2-4) % Baso % (Auto) 0 (0-1) % D-Dimer, Quantitative (0.0-500.0) ng/mL Sodium 139 L (140-148) mmol/L Potassium 3.9 (3.6-5.2) mmol/L Chloride 104 (100-108) mmol/L Carbon Dioxide 24 (21-32) mmol/L Anion Gap 14.9 H (5.0-14.0) mmol/L BUN 29 H (7-18) mg/dL Creatinine 1.1 (0.8-1.3) mg/dL Est Cr Clr Drug Dosing 75.77 mL/min Estimated GFR (MDRD) > 60 (>60) Glucose 97 (74-106) mg/dL Calcium 8.3 L (8.5-10.1) mg/dL Ferritin (8-388) ng/ml Total Bilirubin 0.2 (0.2-1.0) mg/dL AST 87 H (15-37) U/L ALT 80 H (12-78) U/L Alkaline Phosphatase 96 (46-116) U/L C-Reactive Protein (0.0-0.3) mg/dL Total Protein 6.1 L (6.4-8.2) g/dL Albumin 2.6 L (3.4-5.0) g/dL Globulin 3.5 (2.3-3.5) g/dL Albumin/Globulin Ratio 0.7 L (1.2-2.2) Blood Type A POSITIVE 02/14/20 02/14/20 Range/Units 05:13 05:13 WBC (4.5-11.0) K/uL RBC (4.30-5.90) M/uL Hgb (12.0-15.0) g/dL Hct (40.0-54.0) % MCV (80-98) fL MCH (27-31) pg MCHC (32-36) % Plt Count (150-400) K/uL Neut % (Auto) (36-66) % Lymph % (Auto) (24-44) % [place] % (Auto) (2-6) % Eos % (Auto) (2-4) % Baso % (Auto) (0-1) % D-Dimer, Quantitative 4339.78 H (0.0-500.0) ng/mL Sodium (140-148) mmol/L Potassium (3.6-5.2) mmol/L Chloride (100-108) mmol/L Carbon Dioxide (21-32) mmol/L Anion Gap (5.0-14.0) mmol/L BUN (7-18) mg/dL Creatinine (0.8-1.3) mg/dL Est Cr Clr Drug Dosing mL/min Estimated GFR (MDRD) (>60) Glucose (74-106) mg/dL Calcium (8.5-10.1) mg/dL Ferritin 275 (8-388) ng/ml Total Bilirubin (0.2-1.0) mg/dL AST (15-37) U/L ALT (12-78) U/L Alkaline Phosphatase (46-116) U/L C-Reactive Protein 4.39 H (0.0-0.3) mg/dL Total Protein (6.4-8.2) g/dL Albumin (3.4-5.0) g/dL Globulin (2.3-3.5) g/dL Albumin/Globulin Ratio (1.2-2.2) Blood Type Med Orders - Current: Current Medications Acetaminophen (Tylenol) 650 mg PO Q4H PRN PRN Reason: Pain (Mild 1-3)/fever Last Admin: 02/13/20 05:22 Dose: 650 mg Documented by: Albuterol/Ipratropium (Combivent Respimat) 0 gm INH QIDRT [facility] Last Admin: 02/14/20 12:06 Dose: 1 puff Documented by: Aspirin (Halfprin) 81 mg PO DAILY [facility] Last Admin: 02/14/20 08:22 Dose: 81 mg Documented by: Clopidogrel Bisulfate (Plavix) 75 mg PO DAILY [facility] Last Admin: 02/14/20 08:22 Dose: 75 mg Documented by: Dexamethasone (Decadron) 6 mg IVPUSH Q24H [facility] Stop: 02/22/20 10:01 Last Admin: 02/14/20 09:28 Dose: 6 mg Documented by: Duloxetine HCl (Cymbalta) 60 mg PO DAILY [facility] Last Admin: 02/14/20 08:21 Dose: 60 mg Documented by: Enoxaparin Sodium (Lovenox) 40 mg SUBCUT Q24H [facility] Last Admin: 02/13/20 20:39 Dose: 40 mg Documented by: Finasteride (Proscar) 5 mg PO DAILY [facility] Last Admin: 02/14/20 08:22 Dose: 5 mg Documented by: Remdesivir 100 mg/ Sodium (Chloride) 100 mls @ 100 mls/hr IV Q24H [facility] Stop: 02/17/20 10:59 Last Admin: 02/14/20 10:32 Dose: 100 mls/hr Documented by: Lidocaine (Lidoderm 5%) 700 mg TOP DAILY [facility] Last Admin: 02/13/20 08:35 Dose: 700 mg Documented by: Lisinopril (Prinivil) 10 mg PO DAILY [facility] Last Admin: 02/14/20 08:22 Dose: 10 mg Documented by: Mirtazapine (Remeron) 15 mg PO BEDTIME [facility] Last Admin: 02/13/20 20:38 Dose: 15 mg Documented by: Miscellaneous Information (Remove Patch) 1 ea TRDERM BEDTIME [facility] Last Admin: 02/13/20 20:39 Dose: 1 ea Documented by: Ondansetron HCl (Zofran) 4 mg IV Q4H PRN PRN Reason: Nausea/Vomiting Pneumococcal Polyvalent Vaccine (Pneumovax 23) 0.5 ml IM .ONCE ONE Stop: 02/13/20 10:01 Polyethylene Glycol (Miralax) 17 gm PO DAILY PRN PRN Reason: Constipation Risperidone (Risperidal) 3 mg PO BID [facility] Last Admin: 02/14/20 08:21 Dose: 3 mg Documented by: Sodium Chloride (Saline Flush) 10 ml FLUSH ASDIRECTED PRN PRN Reason: Keep Vein Open Tiotropium [place] (Spiriva Respimat) 0 gm INH DAILYRT [facility] Last Admin: 02/14/20 08:18 Dose: 4 gm Documented by: Discontinued Medications Aspirin (Aspirin) 81 mg PO DAILY [facility] Last Admin: 02/12/20 22:38 Dose: 81 mg Documented by: Enoxaparin Sodium (Lovenox) 40 mg SUBCUT DAILY [facility] Last Admin: 02/12/20 22:37 Dose: 40 mg Documented by: Sodium Chloride (Normal Saline) 100 mls @ 3 mls/sec IV ASDIRECTED [facility] Last Admin: 02/12/20 16:06 Dose: 4 mls/sec Documented by: Lactated Ringer's (Ringers, Lactated) 1,000 mls @ 150 mls/hr IV ASDIRECTED [facility] Sodium Chloride (Normal Saline) 1,000 mls @ 75 mls/hr IV ASDIRECTED [facility] Last Admin: 02/13/20 08:31 Dose: 75 mls/hr Documented by: Remdesivir 200 mg/ Sodium (Chloride) 250 mls @ 250 mls/hr IV ONETIME ONE Stop: 02/13/20 11:14 Last Admin: 02/13/20 10:51 Dose: 250 mls/hr Documented by: Iopamidol (Isovue-370 (76%)) 100 ml IV . DIRECTED [facility] Last Admin: 02/12/20 16:06 Dose: 100 ml Documented by: Lidocaine (Lidoderm 5%) mg TOP Q12HR [facility] Non-Formulary Medication (Tiotropium [Spiriva Handihaler]) 2 puff INH DAILY [facility] Non-Formulary Medication (Risperidone [Risperidal]) 3 mg PO BID [facility] Last Admin: 02/12/20 23:05 Dose: Not Given Documented by: Nystatin (Nystop) 1 gm TOP NOW STA Stop: 02/12/20 19:05 Last Admin: 02/12/20 20:10 Dose: 1 applic Documented by: Ondansetron HCl (Zofran) 4 mg IVPUSH ONETIME ONE Stop: 02/12/20 19:47 Last Admin: 02/12/20 20:10 Dose: 4 mg Documented by: Sodium Chloride (Saline Flush) 10 ml FLUSH ASDIRECTED PRN PRN Reason: Keep Vein Open Last Admin: 02/12/20 16:06 Dose: 10 ml Documented by: - Exam Quality Assessment: Supplemental Oxygen, DVT Prophylaxis General: Alert, Cooperative, Mild Distress Lungs: Clear to Auscultation, Normal Respiratory Effort Cardiovascular: Regular Rate, Regular Rhythm, No Murmurs GI/Abdominal Exam: Soft, Non-Tender, No Organomegaly, No Distention Extremities: Non-Tender, No Pedal Edema Sepsis Event Note - Evaluation Sepsis Screening Result: No Definite Risk - Focused Exam Vital Signs: Vital Signs Temp Pulse Resp BP BP Pulse Ox 02/14/20 11:24 98.1 F 62 16 133/67 94 L 02/14/20 08:25 98.1 F 59 L 16 138/81 95 02/14/20 08:22 172/90 H 02/14/20 03:04 97.6 F 70 15 172/90 H 90 L - Problem List Review Problem List Initiated/Reviewed/Updated: Yes - My Orders Last 24 Hours: My Active Orders 02/13/20 15:43 Patient Status [ADT] Routine 02/13/20 21:00 Enoxaparin [Lovenox] 40 mg SUBCUT Q24H Remove Patch 1 ea TRDERM BEDTIME 02/14/20 09:55 Transfuse Fresh Frozen Plasma [COMM] DAILY 02/14/20 10:00 Remdesivir (Eua) [Remdesivir (EUA)] 100 mg Sodium Chloride 0.9% [Normal Saline] 100 ml IV Q24H 02/15/20 05:00 CBC WITH AUTO DIFF [HEME] Timed COMPREHENSIVE METABOLIC PN,CMP [CHEM] Timed 02/15/20 05:11 CRP [C-REACTIVE PROTEIN] [CHEM] AM D Dimer [D-DIMER QUANTITATIVE] [COAG] AM FERRITIN [CHEM] AM 02/15/20 09:55 FRESH FROZEN PLASMA [BBK] DAILY Transfuse Fresh Frozen Plasma [COMM] DAILY - Plan Plan:: ASSESSMENT AND PLAN TIA-recurrent left facial weakness with underlying severe right carotid stenosis. Family has decided not to pursue further aggressive intervention or evaluation of current neurologic symptoms or right carotid stenosis -Continue Plavix -Aspirin 81 mg p.o. daily COVID-19-he has developed hypoxia since admission and is currently requiring supplemental oxygen. Respiratory status has been stable over the last 24 hours -Remdesivir 200 mg IV, then 100 mg IV daily x4 days, today is day 2 of 5 -Convalescent plasma 1 unit daily x3 days, days day 2 of 3 -Decadron 6 mg IV daily x10 days, today is day 2 of 10 -Supportive care SEVERE RIGHT CAROTID STENOSIS -Evaluation and management as above MAINTENANCE ISSUES -DVT prophylaxis; Lovenox 40 mg subcu daily -GI prophylaxis; not indicated -Son catheter; not indicated -Nutrition; 2 g sodium diet -Nicotine dependence; not required CODE STATUS-DNR/DNI ADMISSION STATUS-this patient will be admitted to observation status, expect no more than a one night hospital stay for evaluation and management of problems as outlined above. DISPOSITION-anticipate discharge to home after the hospital stay. PRIMARY CARE PROVIDER-
[2020-02-14] MEDS: Mirtazapine 15 MG Tab PO SCH (21:10)
[2020-02-14] MEDS: Enoxaparin 40 MG/0.4 ML Syringe SUBCUT SCH (21:11)
[2020-02-15] MEDS: Tiotropium Bromide 4 GM Inhalation Spray (2.5mcg/1 dose; 10 doses) INH SCH (08:44)
[2020-02-15] MEDS: Albuterol/Ipratropium 4 GM Inhalation Spray INH SCH ×4 (08:44→21:57)
[2020-02-15] MEDS: Lidocaine 5% 700 MG Patch TOP SCH (08:46)
[2020-02-15] MEDS: risperiDONE 1 MG Tab PO SCH ×2 (08:47→21:57)
[2020-02-15] MEDS: DULoxetine 30 MG Cap PO SCH (08:47)
[2020-02-15] MEDS: Finasteride 5 MG Tab PO SCH (08:47)
[2020-02-15] MEDS: Lisinopril 10 MG Tab PO SCH (08:47)
[2020-02-15] MEDS: Clopidogrel 75 MG Tab PO SCH (08:47)
[2020-02-15] MEDS: Aspirin 81 MG Tab.EC PO SCH (08:47)
[2020-02-15] MEDS: Dexamethasone 4 MG/ML SDV IVPUSH SCH (09:56)
[2020-02-15] MEDS: REMDESIVIR 100 MG in Sodium Chloride 0.9% 100 ML IV SCH (10:30)
--- NOTE | 2020-02-15 15:23 | PCM.PN ---
- General Info Date of Service: 02/15/20 Subjective Update: Mr. Kern's been stable over the past 24 hours. He continues to require supplemental oxygen but has not been noted to have significant respiratory decline. Vital signs have been stable and he has remained afebrile with current management. He remains confused secondary to his underlying dementia and is unable to provide a meaningful history concerning recent symptoms or review of systems Functional Status: Reports: Tolerating Diet, Urinating - Patient Data Vitals - Most Recent: Last Vital Signs Temp 97.3 F 02/15/20 11:11 Pulse 57 L 02/15/20 11:11 Resp 16 02/15/20 11:11 BP 119/70 02/15/20 11:11 Pulse Ox 94 L 02/15/20 12:10 Weight - Most Recent: 189 lb I&O - Last 24 Hours: Intake & Output 02/15/20 02/15/20 02/15/20 06:59 14:59 22:59 Intake Total 820 Balance 820 Lab Results Last 24 Hours: Laboratory Results - last 24 hr 02/13/20 02/15/20 02/15/20 Range/Units 09:55 05:00 05:00 WBC 6.9 (4.5-11.0) K/uL RBC 4.60 (4.30-5.90) M/uL Hgb 13.8 (12.0-15.0) g/dL Hct 41.8 (40.0-54.0) % MCV 91 (80-98) fL MCH 30 (27-31) pg MCHC 33 (32-36) % Plt Count 313 (150-400) K/uL Neut % (Auto) 82 H (36-66) % Lymph % (Auto) 10 L (24-44) % [place] % (Auto) 8 H (2-6) % Eos % (Auto) 0 L (2-4) % Baso % (Auto) 0 (0-1) % D-Dimer, Quantitative (0.0-500.0) ng/mL Sodium 139 L (140-148) mmol/L Potassium 4.0 (3.6-5.2) mmol/L Chloride 104 (100-108) mmol/L Carbon Dioxide 23 (21-32) mmol/L Anion Gap 16.0 H (5.0-14.0) mmol/L BUN 27 H (7-18) mg/dL Creatinine 1.0 (0.8-1.3) mg/dL Est Cr Clr Drug Dosing 83.34 mL/min Estimated GFR (MDRD) > 60 (>60) Glucose 114 H (74-106) mg/dL Calcium 8.7 (8.5-10.1) mg/dL Ferritin (8-388) ng/ml Total Bilirubin 0.2 (0.2-1.0) mg/dL AST 88 H (15-37) U/L ALT 113 H (12-78) U/L Alkaline Phosphatase 94 (46-116) U/L C-Reactive Protein (0.0-0.3) mg/dL Total Protein 6.3 L (6.4-8.2) g/dL Albumin 2.7 L (3.4-5.0) g/dL Globulin 3.6 H (2.3-3.5) g/dL Albumin/Globulin Ratio 0.8 L (1.2-2.2) Urine Color (YELLOW) Urine Appearance (CLEAR) Urine pH (5.0-8.0) Ur Specific [place] (1.008-1.030) Urine Protein (NEGATIVE) mg/dL Urine Glucose (UA) (NEGATIVE) mg/dL Urine Ketones (NEGATIVE) mg/dL Urine Occult Blood (NEGATIVE) Urine Nitrite (NEGATIVE) Urine Bilirubin (NEGATIVE) Urine Urobilinogen (0.2-1.0) EU/dL Ur Leukocyte Esterase (NEGATIVE) Urine RBC (0-5) Urine WBC (0-5) Ur Epithelial Cells Amorphous Sediment Urine Bacteria Urine Mucus Urinalysis Comment Blood Type A POSITIVE 02/15/20 02/15/20 02/15/20 Range/Units 05:11 05:11 11:09 WBC (4.5-11.0) K/uL RBC (4.30-5.90) M/uL Hgb (12.0-15.0) g/dL Hct (40.0-54.0) % MCV (80-98) fL MCH (27-31) pg MCHC (32-36) % Plt Count (150-400) K/uL Neut % (Auto) (36-66) % Lymph % (Auto) (24-44) % [place] % (Auto) (2-6) % Eos % (Auto) (2-4) % Baso % (Auto) (0-1) % D-Dimer, Quantitative 4874.06 H (0.0-500.0) ng/mL Sodium (140-148) mmol/L Potassium (3.6-5.2) mmol/L Chloride (100-108) mmol/L Carbon Dioxide (21-32) mmol/L Anion Gap (5.0-14.0) mmol/L BUN (7-18) mg/dL Creatinine (0.8-1.3) mg/dL Est Cr Clr Drug Dosing mL/min Estimated GFR (MDRD) (>60) Glucose (74-106) mg/dL Calcium (8.5-10.1) mg/dL Ferritin 283 (8-388) ng/ml Total Bilirubin (0.2-1.0) mg/dL AST (15-37) U/L ALT (12-78) U/L Alkaline Phosphatase (46-116) U/L C-Reactive Protein 2.04 H (0.0-0.3) mg/dL Total Protein (6.4-8.2) g/dL Albumin (3.4-5.0) g/dL Globulin (2.3-3.5) g/dL Albumin/Globulin Ratio (1.2-2.2) Urine Color Red A (YELLOW) Urine Appearance Cloudy A (CLEAR) Urine pH 6.0 (5.0-8.0) Ur Specific [place] >= 1.030 (1.008-1.030) Urine Protein 100 H (NEGATIVE) mg/dL Urine Glucose (UA) Negative (NEGATIVE) mg/dL Urine Ketones Negative (NEGATIVE) mg/dL Urine Occult Blood Large H (NEGATIVE) Urine Nitrite Negative (NEGATIVE) Urine Bilirubin Negative (NEGATIVE) Urine Urobilinogen 1.0 (0.2-1.0) EU/dL Ur Leukocyte Esterase Small H (NEGATIVE) Urine RBC Packed H (0-5) Urine WBC 0-5 (0-5) Ur Epithelial Cells Rare Amorphous Sediment Not seen Urine Bacteria Rare Urine Mucus Not seen Urinalysis Comment Blood Type Med Orders - Current: Current Medications Acetaminophen (Tylenol) 650 mg PO Q4H PRN PRN Reason: Pain (Mild 1-3)/fever Last Admin: 02/13/20 05:22 Dose: 650 mg Documented by: Albuterol/Ipratropium (Combivent Respimat) 0 gm INH QIDRT [facility] Last Admin: 02/15/20 12:59 Dose: 1 puff Documented by: Aspirin (Halfprin) 81 mg PO DAILY [facility] Last Admin: 02/15/20 08:47 Dose: 81 mg Documented by: Clopidogrel Bisulfate (Plavix) 75 mg PO DAILY [facility] Last Admin: 02/15/20 08:47 Dose: 75 mg Documented by: Dexamethasone (Decadron) 6 mg IVPUSH Q24H [facility] Stop: 02/22/20 10:01 Last Admin: 02/15/20 09:56 Dose: 6 mg Documented by: Duloxetine HCl (Cymbalta) 60 mg PO DAILY [facility] Last Admin: 02/15/20 08:47 Dose: 60 mg Documented by: Enoxaparin Sodium (Lovenox) 40 mg SUBCUT Q24H [facility] Last Admin: 02/14/20 21:11 Dose: 40 mg Documented by: Finasteride (Proscar) 5 mg PO DAILY [facility] Last Admin: 02/15/20 08:47 Dose: 5 mg Documented by: Remdesivir 100 mg/ Sodium (Chloride) 100 mls @ 100 mls/hr IV Q24H [facility] Stop: 02/17/20 10:59 Last Admin: 02/15/20 10:30 Dose: 100 mls/hr Documented by: Lidocaine (Lidoderm 5%) 700 mg TOP DAILY [facility] Last Admin: 02/15/20 08:46 Dose: Not Given Documented by: Lisinopril (Prinivil) 10 mg PO DAILY [facility] Last Admin: 02/15/20 08:47 Dose: 10 mg Documented by: Mirtazapine (Remeron) 15 mg PO BEDTIME [facility] Last Admin: 02/14/20 21:10 Dose: 15 mg Documented by: Miscellaneous Information (Remove Patch) 1 ea TRDERM BEDTIME [facility] Last Admin: 02/14/20 21:11 Dose: 1 ea Documented by: Ondansetron HCl (Zofran) 4 mg IV Q4H PRN PRN Reason: Nausea/Vomiting Pneumococcal Polyvalent Vaccine (Pneumovax 23) 0.5 ml IM .ONCE ONE Stop: 02/17/20 10:01 Polyethylene Glycol (Miralax) 17 gm PO DAILY PRN PRN Reason: Constipation Risperidone (Risperidal) 3 mg PO BID [facility] Last Admin: 02/15/20 08:47 Dose: 3 mg Documented by: Sodium Chloride (Saline Flush) 10 ml FLUSH ASDIRECTED PRN PRN Reason: Keep Vein Open Tiotropium [place] (Spiriva Respimat) 0 gm INH DAILYRT [facility] Last Admin: 02/15/20 08:44 Dose: 4 gm Documented by: Discontinued Medications Aspirin (Aspirin) 81 mg PO DAILY [facility] Last Admin: 02/12/20 22:38 Dose: 81 mg Documented by: Enoxaparin Sodium (Lovenox) 40 mg SUBCUT DAILY [facility] Last Admin: 02/12/20 22:37 Dose: 40 mg Documented by: Sodium Chloride (Normal Saline) 100 mls @ 3 mls/sec IV ASDIRECTED [facility] Last Admin: 02/12/20 16:06 Dose: 4 mls/sec Documented by: Lactated Ringer's (Ringers, Lactated) 1,000 mls @ 150 mls/hr IV ASDIRECTED [facility] Sodium Chloride (Normal Saline) 1,000 mls @ 75 mls/hr IV ASDIRECTED [facility] Last Admin: 02/13/20 08:31 Dose: 75 mls/hr Documented by: Remdesivir 200 mg/ Sodium (Chloride) 250 mls @ 250 mls/hr IV ONETIME ONE Stop: 02/13/20 11:14 Last Admin: 02/13/20 10:51 Dose: 250 mls/hr Documented by: Iopamidol (Isovue-370 (76%)) 100 ml IV . DIRECTED [facility] Last Admin: 02/12/20 16:06 Dose: 100 ml Documented by: Lidocaine (Lidoderm 5%) mg TOP Q12HR [facility] Non-Formulary Medication (Tiotropium [Spiriva Handihaler]) 2 puff INH DAILY [facility] Non-Formulary Medication (Risperidone [Risperidal]) 3 mg PO BID [facility] Last Admin: 02/12/20 23:05 Dose: Not Given Documented by: Nystatin (Nystop) 1 gm TOP NOW [facility] Stop: 02/12/20 19:05 Last Admin: 02/12/20 20:10 Dose: 1 applic Documented by: Ondansetron HCl (Zofran) 4 mg IVPUSH ONETIME ONE Stop: 02/12/20 19:47 Last Admin: 02/12/20 20:10 Dose: 4 mg Documented by: Sodium Chloride (Saline Flush) 10 ml FLUSH ASDIRECTED PRN PRN Reason: Keep Vein Open Last Admin: 02/12/20 16:06 Dose: 10 ml Documented by: - Exam Quality Assessment: Supplemental Oxygen, DVT Prophylaxis General: Alert, Cooperative, Mild Distress. No: Oriented Lungs: Clear to Auscultation, Normal Respiratory Effort, Decreased Breath Sounds. No: Rales, Rhonchi, Wheezing Cardiovascular: Regular Rate, Regular Rhythm, No Murmurs GI/Abdominal Exam: Soft, Non-Tender, No Organomegaly, No Distention Extremities: Non-Tender, No Pedal Edema Sepsis Event Note - Evaluation Sepsis Screening Result: No Definite Risk - Focused Exam Vital Signs: Vital Signs Temp Pulse Resp BP BP Pulse Ox 02/15/20 12:10 94 L 02/15/20 11:11 97.3 F 57 L 16 119/70 94 L 02/15/20 08:47 136/83 02/15/20 07:59 97.1 F 61 16 136/83 96 02/15/20 07:26 93 L - Problem List Review Problem List Initiated/Reviewed/Updated: Yes - My Orders Last 24 Hours: My Active Orders 02/15/20 09:55 Transfuse Fresh Frozen Plasma [COMM] DAILY 02/16/20 05:00 CBC WITH AUTO DIFF [HEME] Timed COMPREHENSIVE METABOLIC PN,CMP [CHEM] Timed 02/16/20 05:11 CRP [C-REACTIVE PROTEIN] [CHEM] AM D Dimer [D-DIMER QUANTITATIVE] [COAG] AM FERRITIN [CHEM] AM 02/17/20 10:00 Pneumococcal Polyvalent-23 Vac [Pneumovax 23] 0.5 ml IM .ONCE ONE - Plan Plan:: ASSESSMENT AND PLAN TIA-recurrent left facial weakness with underlying severe right carotid stenosis . Family has decided not to pursue further aggressive intervention or evaluation of current neurologic symptoms or right carotid stenosis -Continue Plavix -Aspirin 81 mg p.o. daily [id number] to require supplemental oxygen, no significant worsening of respiratory status over the last 24 hours -Remdesivir 200 mg IV, then 100 mg IV daily x4 days, today is day 3 of 5 -Convalescent plasma 1 unit daily x3 days, days day 3 of 3 -Decadron 6 mg IV daily x 5-10 days, today is day 3 of 10 -Supportive care SEVERE RIGHT CAROTID STENOSIS -Evaluation and management as above MAINTENANCE ISSUES -DVT prophylaxis; Lovenox 40 mg subcu daily -GI prophylaxis; not indicated -Son catheter; not indicated -Nutrition; 2 g sodium diet -Nicotine dependence; not required CODE STATUS-DNR/DNI ADMISSION STATUS-this patient will be admitted to observation status, expect no more than a one night hospital stay for evaluation and management of problems as outlined above. DISPOSITION-anticipate discharge to home after the hospital stay. Family would like to consider possible hospice evaluation after discharge for possible admission. PRIMARY CARE PROVIDER-
[2020-02-15] MEDS ORDERED: Haloperidol Lactate 5 MG/ML SDV IVPUSH ONE ×2 (15:27→17:15)
[2020-02-15] MEDS ORDERED: Haloperidol Lactate 5 MG/ML SDV IVPUSH PRN (17:30)
[2020-02-15] MEDS: Mirtazapine 15 MG Tab PO SCH (21:57)
[2020-02-16] MEDS: Albuterol/Ipratropium 4 GM Inhalation Spray INH SCH ×4 (08:48→20:31)
[2020-02-16] MEDS: Tiotropium Bromide 4 GM Inhalation Spray (2.5mcg/1 dose; 10 doses) INH SCH (08:48)
[2020-02-16] MEDS: Clopidogrel 75 MG Tab PO SCH (08:50)
[2020-02-16] MEDS: Finasteride 5 MG Tab PO SCH (08:50)
[2020-02-16] MEDS: DULoxetine 30 MG Cap PO SCH (08:51)
[2020-02-16] MEDS: Lisinopril 10 MG Tab PO SCH (09:00)
[2020-02-16] MEDS: Lidocaine 5% 700 MG Patch TOP SCH (09:06)
[2020-02-16] MEDS: Dexamethasone 4 MG/ML SDV IVPUSH SCH (09:10)
[2020-02-16] MEDS: REMDESIVIR 100 MG in Sodium Chloride 0.9% 100 ML IV SCH (10:20)
[2020-02-16] MEDS: risperiDONE 1 MG Tab PO SCH ×2 (10:55→20:32)
--- NOTE | 2020-02-16 13:29 | PCM.PN ---
- General Info Date of Service: 02/16/20 Subjective Update: No acute events overnight. Patient says he does not feel well today. He reports discomfort in his chest especially with coughing and deep breathing. This is a sharp pain. He has nausea. He reports headaches. He feels weak and tired. He is requiring only a very small quantity of supplemental oxygen. Vitals have been stable. No new neurological symptoms. Functional Status: Reports: Pain Controlled, Tolerating Diet - Review of Systems General: Reports: Weakness. Denies: Fever Pulmonary: Reports: Shortness of Breath, Cough Cardiovascular: Reports: Chest Pain Gastrointestinal: Reports: Nausea - Patient Data Vitals - Most Recent: Last Vital Signs Temp 36.7 C 02/16/20 11:00 Pulse 89 02/16/20 11:00 Resp 18 02/16/20 11:00 BP 146/79 H 02/16/20 11:00 Pulse Ox 97 02/16/20 13:15 Weight - Most Recent: 85.729 kg I&O - Last 24 Hours: Intake & Output 02/15/20 02/16/20 02/16/20 22:59 06:59 14:59 Intake Total 671 100 Output Total 100 Balance 671 0 Lab Results Last 24 Hours: Laboratory Results - last 24 hr 02/13/20 02/16/20 02/16/20 Range/Units 09:55 04:25 04:25 WBC 12.8 H (4.5-11.0) K/uL RBC 4.43 (4.30-5.90) M/uL Hgb 13.2 (12.0-15.0) g/dL Hct 40.2 (40.0-54.0) % MCV 91 (80-98) fL MCH 30 (27-31) pg MCHC 33 (32-36) % Plt Count 319 (150-400) K/uL Neut % (Auto) 85 H (36-66) % Lymph % (Auto) 7 L (24-44) % [place] % (Auto) 7 H (2-6) % Eos % (Auto) 0 L (2-4) % Baso % (Auto) 0 (0-1) % D-Dimer, Quantitative (0.0-500.0) ng/mL Sodium 139 L (140-148) mmol/L Potassium 3.9 (3.6-5.2) mmol/L Chloride 104 (100-108) mmol/L Carbon Dioxide 24 (21-32) mmol/L Anion Gap 14.9 H (5.0-14.0) mmol/L BUN 27 H (7-18) mg/dL Creatinine 0.9 (0.8-1.3) mg/dL Est Cr Clr Drug Dosing 92.60 mL/min Estimated GFR (MDRD) > 60 (>60) Glucose 109 H (74-106) mg/dL Calcium 8.6 (8.5-10.1) mg/dL Ferritin (8-388) ng/ml Total Bilirubin 0.2 (0.2-1.0) mg/dL AST 105 H (15-37) U/L ALT 203 H (12-78) U/L Alkaline Phosphatase 87 (46-116) U/L C-Reactive Protein (0.0-0.3) mg/dL Total Protein 5.7 L (6.4-8.2) g/dL Albumin 2.6 L (3.4-5.0) g/dL Globulin 3.1 (2.3-3.5) g/dL Albumin/Globulin Ratio 0.8 L (1.2-2.2) Blood Type A POSITIVE 02/16/20 02/16/20 Range/Units 04:25 04:25 WBC (4.5-11.0) K/uL RBC (4.30-5.90) M/uL Hgb (12.0-15.0) g/dL Hct (40.0-54.0) % MCV (80-98) fL MCH (27-31) pg MCHC (32-36) % Plt Count (150-400) K/uL Neut % (Auto) (36-66) % Lymph % (Auto) (24-44) % [place] % (Auto) (2-6) % Eos % (Auto) (2-4) % Baso % (Auto) (0-1) % D-Dimer, Quantitative 4602.42 H (0.0-500.0) ng/mL Sodium (140-148) mmol/L Potassium (3.6-5.2) mmol/L Chloride (100-108) mmol/L Carbon Dioxide (21-32) mmol/L Anion Gap (5.0-14.0) mmol/L BUN (7-18) mg/dL Creatinine (0.8-1.3) mg/dL Est Cr Clr Drug Dosing mL/min Estimated GFR (MDRD) (>60) Glucose (74-106) mg/dL Calcium (8.5-10.1) mg/dL Ferritin 267 (8-388) ng/ml Total Bilirubin (0.2-1.0) mg/dL AST (15-37) U/L ALT (12-78) U/L Alkaline Phosphatase (46-116) U/L C-Reactive Protein 0.89 H (0.0-0.3) mg/dL Total Protein (6.4-8.2) g/dL Albumin (3.4-5.0) g/dL Globulin (2.3-3.5) g/dL Albumin/Globulin Ratio (1.2-2.2) Blood Type Med Orders - Current: Current Medications Acetaminophen (Tylenol) 650 mg PO Q4H PRN PRN Reason: Pain (Mild 1-3)/fever Last Admin: 02/13/20 05:22 Dose: 650 mg Documented by: Albuterol/Ipratropium (Combivent Respimat) 0 gm INH QIDRT [facility] Last Admin: 02/16/20 13:09 Dose: 1 puff Documented by: Clopidogrel Bisulfate (Plavix) 75 mg PO DAILY [facility] Last Admin: 02/16/20 08:50 Dose: 75 mg Documented by: Duloxetine HCl (Cymbalta) 60 mg PO DAILY [facility] Last Admin: 02/16/20 08:51 Dose: 60 mg Documented by: Finasteride (Proscar) 5 mg PO DAILY [facility] Last Admin: 02/16/20 08:50 Dose: 5 mg Documented by: Haloperidol Lactate (Haldol) 2 mg IVPUSH Q2H PRN PRN Reason: Agitation Remdesivir 100 mg/ Sodium (Chloride) 100 mls @ 100 mls/hr IV Q24H [facility] Stop: 02/17/20 10:59 Last Admin: 02/16/20 10:20 Dose: 100 mls/hr Documented by: Lidocaine (Lidoderm 5%) 700 mg TOP DAILY [facility] Last Admin: 02/16/20 09:06 Dose: Not Given Documented by: Lisinopril (Prinivil) 10 mg PO DAILY [facility] Last Admin: 02/15/20 08:47 Dose: 10 mg Documented by: Mirtazapine (Remeron) 15 mg PO BEDTIME [facility] Last Admin: 02/15/20 21:57 Dose: 15 mg Documented by: Miscellaneous Information (Remove Patch) 1 ea TRDERM BEDTIME [facility] Last Admin: 02/15/20 21:57 Dose: Not Given Documented by: Ondansetron HCl (Zofran) 4 mg IV Q4H PRN PRN Reason: Nausea/Vomiting Pneumococcal Polyvalent Vaccine (Pneumovax 23) 0.5 ml IM .ONCE ONE Stop: 02/17/20 10:01 Polyethylene Glycol (Miralax) 17 gm PO DAILY PRN PRN Reason: Constipation Risperidone (Risperidal) 3 mg PO BID [facility] Last Admin: 02/16/20 10:55 Dose: 3 mg Documented by: Sodium Chloride (Saline Flush) 10 ml FLUSH ASDIRECTED PRN PRN Reason: Keep Vein Open Tiotropium [place] (Spiriva Respimat) 0 gm INH DAILYRT [facility] Last Admin: 02/16/20 08:48 Dose: 4 gm Documented by: Discontinued Medications Aspirin (Aspirin) 81 mg PO DAILY [facility] Last Admin: 02/12/20 22:38 Dose: 81 mg Documented by: Aspirin (Halfprin) 81 mg PO DAILY [facility] Last Admin: 02/15/20 08:47 Dose: 81 mg Documented by: Dexamethasone (Decadron) 6 mg IVPUSH Q24H [facility] Stop: 02/22/20 10:01 Last Admin: 02/16/20 09:10 Dose: 6 mg Documented by: Enoxaparin Sodium (Lovenox) 40 mg SUBCUT DAILY [facility] Last Admin: 02/12/20 22:37 Dose: 40 mg Documented by: Enoxaparin Sodium (Lovenox) 40 mg SUBCUT Q24H [facility] Last Admin: 02/14/20 21:11 Dose: 40 mg Documented by: Haloperidol Lactate (Haldol) 5 mg IVPUSH ONETIME ONE Stop: 02/15/20 15:28 Last Admin: 02/15/20 15:47 Dose: 2 mg Documented by: Haloperidol Lactate (Haldol) 5 mg IVPUSH ONETIME ONE Stop: 02/15/20 17:16 Last Admin: 02/15/20 17:15 Dose: 5 mg Documented by: Sodium Chloride (Normal Saline) 100 mls @ 3 mls/sec IV ASDIRECTED [facility] Last Admin: 02/12/20 16:06 Dose: 4 mls/sec Documented by: Lactated Ringer's (Ringers, Lactated) 1,000 mls @ 150 mls/hr IV ASDIRECTED [facility] Sodium Chloride (Normal Saline) 1,000 mls @ 75 mls/hr IV ASDIRECTED [facility] Last Admin: 02/13/20 08:31 Dose: 75 mls/hr Documented by: Remdesivir 200 mg/ Sodium (Chloride) 250 mls @ 250 mls/hr IV ONETIME ONE Stop: 02/13/20 11:14 Last Admin: 02/13/20 10:51 Dose: 250 mls/hr Documented by: Iopamidol (Isovue-370 (76%)) 100 ml IV . DIRECTED [facility] Last Admin: 02/12/20 16:06 Dose: 100 ml Documented by: Lidocaine (Lidoderm 5%) mg TOP Q12HR [facility] Non-Formulary Medication (Tiotropium [Spiriva Handihaler]) 2 puff INH DAILY [facility] Non-Formulary Medication (Risperidone [Risperidal]) 3 mg PO BID [facility] Last Admin: 02/12/20 23:05 Dose: Not Given Documented by: Nystatin (Nystop) 1 gm TOP NOW STA Stop: 02/12/20 19:05 Last Admin: 02/12/20 20:10 Dose: 1 applic Documented by: Ondansetron HCl (Zofran) 4 mg IVPUSH ONETIME ONE Stop: 02/12/20 19:47 Last Admin: 02/12/20 20:10 Dose: 4 mg Documented by: Sodium Chloride (Saline Flush) 10 ml FLUSH ASDIRECTED PRN PRN Reason: Keep Vein Open Last Admin: 02/12/20 16:06 Dose: 10 ml Documented by: - Exam Quality Assessment: Supplemental Oxygen General: Alert, Oriented, Cooperative, Mild Distress Lungs: Normal Respiratory Effort, Crackles (both bases). No: Wheezing Cardiovascular: Regular Rate, Regular Rhythm GI/Abdominal Exam: Normal Bowel Sounds, Soft, Non-Tender, No Distention Extremities: No Pedal Edema. No: Increased Warmth Skin: Warm, Dry Psy/Mental Status: Alert. No: Normal Affect (flat affect ) Sepsis Event Note - Evaluation Sepsis Screening Result: No Definite Risk - Focused Exam Vital Signs: Vital Signs Temp Pulse Resp BP BP Pulse Ox 02/16/20 13:15 97 02/16/20 11:00 36.7 C 89 18 146/79 H 94 L 02/16/20 07:48 98 02/16/20 07:00 36.6 C 67 16 96/54 L 97 02/16/20 03:08 36.2 C 68 18 129/70 99 - Problem List Review Problem List Initiated/Reviewed/Updated: Yes - My Orders Last 24 Hours: My Active Orders 02/17/20 05:00 CBC W/O DIFF,HEMOGRAM [HEME] Timed (1) COMPREHENSIVE METABOLIC PN,CMP [CHEM] Timed 02/17/20 10:00 dexAMETHasone 6 mg PO Q24H - Plan Plan:: ASSESSMENT AND PLAN TIA-recurrent left facial weakness with underlying severe right carotid stenosis. Family has decided not to pursue further aggressive intervention or evaluation of current neurologic symptoms or right carotid stenosis -Continue Plavix -Aspirin 81 mg p.o. daily [id number] to require a small amount of supplemental oxygen but respiratory status has been stable. He also has headache, cough, pleuritic chest pain and weakness. LFT numbers are slightly higher today than yesterday. -Remdesivir 100 mg IV daily x4 days, today is day 4 of 5 -Convalescent plasma treatment is complete -Decadron 6 mg daily x 5-10 days, today is day 4 of 10 -Supportive care SEVERE RIGHT CAROTID STENOSIS -Evaluation and management as above Encounter for palliative care-family does not wish for him to undergo aggressive management for his severe carotid stenosis or his Covid infection though they are comfortable with his current level of care. They would like to transition to hospice cares if he survives his Covid infection. MAINTENANCE ISSUES -DVT prophylaxis; Lovenox 40 mg subcu daily -GI prophylaxis; not indicated -Son catheter; not indicated -Nutrition; 2 g sodium diet DISPOSITION-anticipate discharge to his previous assisted living situation with hospice after the hospital stay. Beto Fraga MD
[2020-02-16] MEDS: Acetaminophen 325 MG Tab PO PRN (20:32)
[2020-02-16] MEDS: Mirtazapine 15 MG Tab PO SCH (20:32)
[2020-02-17] MEDS: Albuterol/Ipratropium 4 GM Inhalation Spray INH SCH ×4 (08:54→21:52)
[2020-02-17] MEDS: Tiotropium Bromide 4 GM Inhalation Spray (2.5mcg/1 dose; 10 doses) INH SCH (08:54)
[2020-02-17] MEDS: DULoxetine 30 MG Cap PO SCH (08:55)
[2020-02-17] MEDS: Finasteride 5 MG Tab PO SCH (08:55)
[2020-02-17] MEDS: Lisinopril 10 MG Tab PO SCH (08:55)
[2020-02-17] MEDS: Clopidogrel 75 MG Tab PO SCH (08:55)
[2020-02-17] MEDS: Lidocaine 5% 700 MG Patch TOP SCH (08:55)
[2020-02-17] MEDS: risperiDONE 1 MG Tab PO SCH ×2 (08:56→21:52)
[2020-02-17] MEDS: Dexamethasone 2 MG Tab PO SCH (09:02)
[2020-02-17] MEDS ORDERED: Pneumococcal Polyvalent-23 Vaccine 0.5 ML SDV IM ONE (10:00)
[2020-02-17] MEDS: REMDESIVIR 100 MG in Sodium Chloride 0.9% 100 ML IV SCH (10:52)
[2020-02-17] MEDS ORDERED: Morphine 10 MG/0.5 ML Oral Syringe PO PRN (14:36)
--- NOTE | 2020-02-17 14:38 | PCM.PN ---
- General Info Date of Service: 02/17/20 Subjective Update: No acute events overnight. He reports shortness of breath and mild cough. He reports ongoing pleuritic type chest pain which is worse with coughing. Appetite has not been great. He has been moving around a little bit in his room. He has been sleeping most of the time. No facial droop noted. No report of neurological deficits. Plan is for transition to hospice after the hospital stay. Functional Status: Reports: Pain Controlled, Tolerating Diet - Review of Systems General: Reports: Weakness. Denies: Fever Pulmonary: Reports: Shortness of Breath, Pleuritic Chest Pain - Patient Data Vitals - Most Recent: Last Vital Signs Temp 36.3 C 02/17/20 10:45 Pulse 84 02/17/20 10:45 Resp 16 02/17/20 10:45 BP 116/69 02/17/20 10:45 Pulse Ox 95 02/17/20 13:06 Weight - Most Recent: 85.729 kg I&O - Last 24 Hours: Intake & Output 02/16/20 02/17/20 02/17/20 22:59 06:59 14:59 Intake Total 420 780 Balance 420 780 Lab Results Last 24 Hours: Laboratory Results - last 24 hr 02/17/20 02/17/20 Range/Units 04:10 04:10 WBC 8.5 (4.5-11.0) K/uL RBC 4.37 (4.30-5.90) M/uL Hgb 13.0 (12.0-15.0) g/dL Hct 39.9 L (40.0-54.0) % MCV 91 (80-98) fL MCH 30 (27-31) pg MCHC 33 (32-36) % Plt Count 328 (150-400) K/uL Sodium 140 (140-148) mmol/L Potassium 4.0 (3.6-5.2) mmol/L Chloride 105 (100-108) mmol/L Carbon Dioxide 25 (21-32) mmol/L Anion Gap 10.3 (5.0-14.0) mmol/L BUN 33 H (7-18) mg/dL Creatinine 1.1 (0.8-1.3) mg/dL Est Cr Clr Drug Dosing 75.77 mL/min Estimated GFR (MDRD) > 60 (>60) Glucose 121 H (74-106) mg/dL Calcium 8.3 L (8.5-10.1) mg/dL Total Bilirubin 0.3 (0.2-1.0) mg/dL AST 78 H (15-37) U/L ALT 225 H (12-78) U/L Alkaline Phosphatase 89 (46-116) U/L Total Protein 5.7 L (6.4-8.2) g/dL Albumin 2.5 L (3.4-5.0) g/dL Globulin 3.2 (2.3-3.5) g/dL Albumin/Globulin Ratio 0.8 L (1.2-2.2) Med Orders - Current: Current Medications Acetaminophen (Tylenol) 650 mg PO Q4H PRN PRN Reason: Pain (Mild 1-3)/fever Last Admin: 02/16/20 20:32 Dose: 650 mg Documented by: Albuterol/Ipratropium (Combivent Respimat) [address] [facility] Last Admin: 02/17/20 10:55 Dose: 1 puff Documented by: Clopidogrel Bisulfate (Plavix) [address] [facility] Last Admin: 02/17/20 08:55 Dose: 75 mg Documented by: Dexamethasone (Dexamethasone) [address] [facility] Stop: 02/22/20 10:01 Last Admin: 02/17/20 09:02 Dose: 6 mg Documented by: Duloxetine HCl (Cymbalta) [address] [facility] Last Admin: 02/17/20 08:55 Dose: 60 mg Documented by: Finasteride (Proscar) [address] [facility] Last Admin: 02/17/20 08:55 Dose: 5 mg Documented by: Haloperidol Lactate (Haldol) 2 mg IVPUSH Q2H PRN PRN Reason: Agitation Lidocaine (Lidoderm 5%) [address] [facility] Last Admin: 02/17/20 08:55 Dose: Not Given Documented by: Lisinopril (Prinivil) [address] [facility] Last Admin: 02/17/20 08:55 Dose: 10 mg Documented by: Mirtazapine (Remeron) [address] [facility] Last Admin: 02/16/20 20:32 Dose: 15 mg Documented by: Miscellaneous Information (Remove Patch) [address] [facility] Last Admin: 02/16/20 20:32 Dose: Not Given Documented by: Ondansetron HCl (Zofran) 4 mg IV Q4H PRN PRN Reason: Nausea/Vomiting Polyethylene Glycol (Miralax) 17 gm PO DAILY PRN PRN Reason: Constipation Risperidone (Risperidal) [address] [facility] Last Admin: 02/17/20 08:56 Dose: 3 mg Documented by: Sodium Chloride (Saline Flush) 10 ml FLUSH ASDIRECTED PRN PRN Reason: Keep Vein Open Tiotropium [place] (Spiriva Respimat) [address] [facility] Last Admin: 02/17/20 08:54 Dose: 4 gm Documented by: Discontinued Medications Aspirin (Aspirin) [address] [facility] Last Admin: 02/12/20 22:38 Dose: 81 mg Documented by: Aspirin (Halfprin) [address] [facility] Last Admin: 02/15/20 08:47 Dose: 81 mg Documented by: Dexamethasone (Decadron) [address] [facility] Stop: 02/22/20 10:01 Last Admin: 02/16/20 09:10 Dose: 6 mg Documented by: Enoxaparin Sodium (Lovenox) [address] [facility] Last Admin: 02/12/20 22:37 Dose: 40 mg Documented by: Enoxaparin Sodium (Lovenox) [address] [facility] Last Admin: 02/14/20 21:11 Dose: 40 mg Documented by: Haloperidol Lactate (Haldol) 5 mg IVPUSH ONETIME ONE Stop: 02/15/20 15:28 Last Admin: 02/15/20 15:47 Dose: 2 mg Documented by: Haloperidol Lactate (Haldol) 5 mg IVPUSH ONETIME ONE Stop: 02/15/20 17:16 Last Admin: 02/15/20 17:15 Dose: 5 mg Documented by: Sodium Chloride (Normal Saline) 100 mls @ 3 mls/sec IV ASDIRECTED [facility] Last Admin: 02/12/20 16:06 Dose: 4 mls/sec Documented by: Lactated Ringer's (Ringers, Lactated) 1,000 mls @ 150 mls/hr IV ASDIRECTED [facility] Sodium Chloride (Normal Saline) 1,000 mls @ 75 mls/hr IV ASDIRECTED [facility] Last Admin: 02/13/20 08:31 Dose: 75 mls/hr Documented by: Remdesivir 200 mg/ Sodium (Chloride) 250 mls @ 250 mls/hr IV ONETIME ONE Stop: 02/13/20 11:14 Last Admin: 02/13/20 10:51 Dose: 250 mls/hr Documented by: Remdesivir 100 mg/ Sodium (Chloride) 100 mls @ 100 mls/hr IV Q24H [facility] Stop: 02/17/20 10:59 Last Admin: 02/17/20 10:52 Dose: 100 mls/hr Documented by: Iopamidol (Isovue-370 (76%)) 100 ml IV . DIRECTED [facility] Last Admin: 02/12/20 16:06 Dose: 100 ml Documented by: Lidocaine (Lidoderm 5%) mg TOP Q12HR [facility] Non-Formulary Medication (Tiotropium [Spiriva Handihaler]) 2 puff INH DAILY [facility] Non-Formulary Medication (Risperidone [Risperidal]) 3 mg PO BID [facility] Last Admin: 02/12/20 23:05 Dose: Not Given Documented by: Nystatin (Nystop) 1 gm TOP NOW [facility] Stop: 02/12/20 19:05 Last Admin: 02/12/20 20:10 Dose: 1 applic Documented by: Ondansetron HCl (Zofran) 4 mg IVPUSH ONETIME ONE Stop: 02/12/20 19:47 Last Admin: 02/12/20 20:10 Dose: 4 mg Documented by: Pneumococcal Polyvalent Vaccine (Pneumovax 23) 0.5 ml IM .ONCE ONE Stop: 02/17/20 10:01 Sodium Chloride (Saline Flush) 10 ml FLUSH ASDIRECTED PRN PRN Reason: Keep Vein Open Last Admin: 02/12/20 16:06 Dose: 10 ml Documented by: - Exam Quality Assessment: No: Supplemental Oxygen General: Alert, Cooperative, No Acute Distress Lungs: Normal Respiratory Effort. No: Wheezing Cardiovascular: Regular Rate, Regular Rhythm GI/Abdominal Exam: Soft, No Distention Extremities: No Pedal Edema. No: Increased Warmth Skin: Warm, Dry Psy/Mental Status: Alert. No: Agitated Sepsis Event Note - Evaluation Sepsis Screening Result: No Definite Risk - Focused Exam Vital Signs: Vital Signs Temp Pulse Resp BP BP BP Pulse Ox 02/17/20 13:06 95 02/17/20 10:45 36.3 C 84 16 116/69 96 02/17/20 08:55 154/76 H 02/17/20 07:49 35.8 C L 70 16 154/76 H 93 L 02/17/20 07:23 92 L 02/17/20 03:55 35.8 C L 52 L 16 101/53 L 92 L - Problem List Review Problem List Initiated/Reviewed/Updated: Yes - My Orders Last 24 Hours: My Active Orders 02/17/20 10:00 dexAMETHasone 6 mg PO Q24H 02/17/20 14:36 Morphine [Morphine 10 MG/0.5 ML Oral Syringe] 10 mg PO Q4H PRN - Plan Plan:: ASSESSMENT AND PLAN COVID-19-he is now off oxygen and has remained stable. His main concern is pleuritic chest pain with cough as well as shortness of breath as well as fatigue. Overall he seems to be doing okay. -Remdesivir 100 mg IV daily x4 days, today is day 5 of 5 -Convalescent plasma treatment is complete -Decadron 6 mg daily x 5-10 days, today is day 5 of 10 -Supportive care TIA-recurrent left facial weakness with underlying severe right carotid stenosis. Family has decided not to pursue further aggressive intervention or evaluation of current neurologic symptoms or right carotid stenosis -Continue Plavix -Aspirin 81 mg p.o. daily SEVERE RIGHT CAROTID STENOSIS -Evaluation and management as above Encounter for palliative care-family does not wish for him to undergo aggressive management for his severe carotid stenosis or his Covid infection though they are comfortable with his current level of care. The plan is for transition to Hospice after his hospital stay. MAINTENANCE ISSUES -DVT prophylaxis; Lovenox 40 mg subcu daily -GI prophylaxis; not indicated -Son catheter; not indicated -Nutrition; 2 g sodium diet DISPOSITION-anticipate discharge to his previous assisted living situation with hospice after the hospital stay, possibly tomorrow if stable overnight. Beto Fraga MD
[2020-02-17] MEDS: Mirtazapine 15 MG Tab PO SCH (21:52)
--- NOTE | 2020-02-18 09:35 | PCM.DCSUM1 ---
Discharge Summary - Hospital Course Brief History: 65-year-old male with traumatic brain injury and resulting dementia, coronary artery disease, previous carotid artery disease who presented with left sided facial droop. Work-up in the emergency room revealed severe right carotid stenosis as well as a positive COVID-19 test. The patient was admitted for further management of both. Diagnosis: Stroke: No - Discharge Data Discharge Date: 02/18/20 Discharge Disposition: DC/Tfer to Hospice - Home Condition: Stable - Referral to Home Health Primary Care Physician: Bhanu Strange MD - Discharge Diagnosis/Problem(s) (1) Stenosis of right carotid artery greater than 50% SNOMED Code(s): 365188957328770 ICD Code: I65.21 - OCCLUSION AND STENOSIS OF RIGHT CAROTID ARTERY Status: Acute (2) COVID-19 SNOMED Code(s): 668800750 ICD Code: U07.1 - COVID-19 Status: Acute (3) TBI (traumatic brain injury) SNOMED Code(s): 641895255 ICD Code: S06.9X9A - UNSP INTRACRANIAL INJURY W LOC OF UNSP DURATION, INIT Status: Chronic Qualifiers: Encounter type: sequela Loss of consciousness presence/duration: with LOC of unspecified duration Qualified Code(s): S06.9X9S - Unspecified intracranial injury with loss of consciousness of unspecified duration, sequela (4) Early onset Alzheimer's dementia SNOMED Code(s): 726647652 ICD Code: G30.0 - ALZHEIMER'S DISEASE WITH EARLY ONSET; F02.80 - DEMENTIA IN OTH DISEASES CLASSD ELSWHR W/O BEHAVRL DISTURB Status: Chronic Qualifiers: Dementia behavioral disturbance: without behavioral disturbance Qualified Code(s): G30.0 - Alzheimer's disease with early onset; F02.80 - Dementia in other diseases classified elsewhere without behavioral disturbance - Patient Summary/Data Hospital Course: Sohail was sent from his assisted living facility to the emergency room for further evaluation of suspected facial droop. There was concern for neurologic compromise. Upon arrival to the emergency room there was a slight facial droop noted. A CT of the head was obtained which showed chronic changes but no acute changes. A CT angiogram of the head and neck was obtained and this showed severe stenosis of the right carotid artery. The case was discussed with the neurologist on-call in [place]. He recommended further evaluation with an MRI in the morning. Patient did not have active neurological signs or symptoms at the time of admission. Laboratory studies did reveal that he had a positive Covid test. He was admitted to the hospital for observation with isolation precautions. At the time of admission he was not hypoxic so we did not initiate treatment for the Covid but he became hypoxic shortly after admission. Treatment with dexamethasone, convalescent plasma and remdesivir was initiated. Regarding the carotid stenosis, discussions were held with his daughter who is his power of insurance defense attorney. She felt that because of his previous difficulty with carotid endarterectomy that nearly killed him that she did not want to put him through another surgery. She was interested in trying to treat the Covid and if he was to survive then more of a transition to comfort cares could be considered. He did stay in the hospital for several days receiving the dexamethasone, plasma and remdesivir. He tolerated these medications well. There have been no significant difficulties during the hospital stay. We have been able to wean him off the supplemental oxygen. He does continue to be fatigued and occasionally has some chest discomfort with coughing but otherwise is doing fairly well. Plan is for him to go back to the assisted living [facility]. He will be admitted to hospice at the time of return. He has completed adequate therapy with steroids and plasma. He did receive 4 out of 5 doses of his remdesivir. His pain has been managed with oral morphine. - Patient Instructions Diet: Regular Diet as Tolerated Activity: As Tolerated Showering/Bathing: May Shower Other/Special Instructions: 1. You were in the hospital for evaluation of a facial droop. This likely resulted because of severe right carotid stenosis. T he decision has been made to forego aggressive interventions/treatment and instead proceed to comfort care. Also noted during the hospital stay was a positive COVID-19 test. You have completed adequate treatment with steroids as well as convalescent plasma and remdesivir. No additional treatment for the Covid is needed at this time. Your positive test was February 11 so you need to quarantine for a total of at least 10 days. 2. Referral to hospice of the [facility] - Discharge Plan *PRESCRIPTION DRUG MONITORING PROGRAM REVIEWED*: Not Applicable *COPY OF PRESCRIPTION DRUG MONITORING REPORT IN PATIENT [place]: Not Applicable Prescriptions/Med Rec: Morphine [Morphine 20 MG/ML Soln] 10 mg PO Q4H PRN #30 ml PRN Reason: Pain Acetaminophen [Tylenol] 650 mg PO Q4H PRN #200 tablet PRN Reason: Pain (Mild 1-3)/fever Home Medications: Home Meds Albuterol/Ipratropium [Combivent Respimat] 1 puff IH QID 02/12/20 [History] Cholecalciferol (Vitamin D3) [Vitamin D] 1,000 units PO DAILY 02/12/20 [History] Clopidogrel Bisulfate [Plavix] 75 mg PO DAILY 02/12/20 [History] DULoxetine [Cymbalta] 60 mg PO DAILY 02/12/20 [History] Finasteride 5 mg PO DAILY 02/12/20 [History] Lidocaine 5% [Lidoderm 5%] 1 patch TOP Q12HR 02/12/20 [History] Mirtazapine [Remeron] 15 mg PO BEDTIME 02/12/20 [History] Tiotropium [Spiriva HandiHaler] 2 puff INH DAILY 02/12/20 [History] lisinopriL [Lisinopril] 10 mg PO DAILY 02/12/20 [History] risperiDONE [RisperiDAL] 3 mg PO BID 02/12/20 [History] Acetaminophen [Tylenol] 650 mg PO Q4H PRN #200 tablet 02/18/20 [Rx] Ibuprofen [Motrin] 600 mg PO Q8H PRN #100 02/18/20 [Rx] Morphine [Morphine 20 MG/ML Soln] 10 mg PO Q4H PRN #30 ml 02/18/20 [Rx] Oxygen Therapy Mode: Room Air Patient Handouts: COVID-19 Referrals: PCP,None [Ordering Only Provider] - (f/u as needed ) - Discharge Summary/Plan Comment DC Time >30 min.: Yes (40-complex hospice discharge ) - Patient Data Vitals - Most Recent: Last Vital Signs Temp 36.2 C 02/18/20 07:00 Pulse 54 L 02/18/20 07:00 Resp 18 02/18/20 07:00 BP 154/97 H 02/18/20 07:00 Pulse Ox 93 L 02/18/20 07:43 Weight - Most Recent: 85.729 kg I&O - Last 24 hours: Intake & Output 02/17/20 02/18/20 02/18/20 22:59 06:59 14:59 Intake Total 960 Balance 960 Med Orders - Current: Current Medications Acetaminophen (Tylenol) 650 mg PO Q4H PRN PRN Reason: Pain (Mild 1-3)/fever Last Admin: 02/16/20 20:32 Dose: 650 mg Documented by: Albuterol/Ipratropium (Combivent Respimat) 0 gm INH QIDRT [facility] Last Admin: 02/17/20 21:52 Dose: Not Given Documented by: Clopidogrel Bisulfate (Plavix) 75 mg PO DAILY [facility] Last Admin: 02/17/20 08:55 Dose: 75 mg Documented by: Dexamethasone (Dexamethasone) 6 mg PO Q24H [facility] Stop: 02/22/20 10:01 Last Admin: 02/17/20 09:02 Dose: 6 mg Documented by: Duloxetine HCl (Cymbalta) 60 mg PO DAILY [facility] Last Admin: 02/17/20 08:55 Dose: 60 mg Documented by: Finasteride (Proscar) 5 mg PO DAILY [facility] Last Admin: 02/17/20 08:55 Dose: 5 mg Documented by: Haloperidol Lactate (Haldol) 2 mg IVPUSH Q2H PRN PRN Reason: Agitation Lidocaine (Lidoderm 5%) 700 mg TOP DAILY [facility] Last Admin: 02/17/20 08:55 Dose: Not Given Documented by: Lisinopril (Prinivil) 10 mg PO DAILY [facility] Last Admin: 02/17/20 08:55 Dose: 10 mg Documented by: Mirtazapine (Remeron) 15 mg PO BEDTIME [facility] Last Admin: 02/17/20 21:52 Dose: Not Given Documented by: Miscellaneous Information (Remove Patch) 1 ea TRDERM BEDTIME [facility] Last Admin: 02/17/20 21:52 Dose: Not Given Documented by: Morphine Sulfate (Morphine 10 Mg/0.5 Ml Oral Syringe) 10 mg PO Q4H PRN PRN Reason: Pain Last Admin: 02/17/20 17:16 Dose: 10 mg Documented by: Ondansetron HCl (Zofran) 4 mg IV Q4H PRN PRN Reason: Nausea/Vomiting Polyethylene Glycol (Miralax) 17 gm PO DAILY PRN PRN Reason: Constipation Risperidone (Risperidal) 3 mg PO BID [facility] Last Admin: 02/17/20 21:52 Dose: Not Given Documented by: Sodium Chloride (Saline Flush) 10 ml FLUSH ASDIRECTED PRN PRN Reason: Keep Vein Open Tiotropium Holder (Spiriva Respimat) 0 gm INH DAILYRT [facility] Last Admin: 02/17/20 08:54 Dose: 4 gm Documented by: Discontinued Medications Aspirin (Aspirin) 81 mg PO DAILY [facility] Last Admin: 02/12/20 22:38 Dose: 81 mg Documented by: Aspirin (Halfprin) 81 mg PO DAILY [facility] Last Admin: 02/15/20 08:47 Dose: 81 mg Documented by: Dexamethasone (Decadron) 6 mg IVPUSH Q24H [facility] Stop: 02/22/20 10:01 Last Admin: 02/16/20 09:10 Dose: 6 mg Documented by: Enoxaparin Sodium (Lovenox) 40 mg SUBCUT DAILY [facility] Last Admin: 02/12/20 22:37 Dose: 40 mg Documented by: Enoxaparin Sodium (Lovenox) 40 mg SUBCUT Q24H [facility] Last Admin: 02/14/20 21:11 Dose: 40 mg Documented by: Haloperidol Lactate (Haldol) 5 mg IVPUSH ONETIME ONE Stop: 02/15/20 15:28 Last Admin: 02/15/20 15:47 Dose: 2 mg Documented by: Haloperidol Lactate (Haldol) 5 mg IVPUSH ONETIME ONE Stop: 02/15/20 17:16 Last Admin: 02/15/20 17:15 Dose: 5 mg Documented by: Sodium Chloride (Normal Saline) 100 mls @ 3 mls/sec IV ASDIRECTED [facility] Last Admin: 02/12/20 16:06 Dose: 4 mls/sec Documented by: Lactated Ringer's (Ringers, Lactated) 1,000 mls @ 150 mls/hr IV ASDIRECTED [facility] Sodium Chloride (Normal Saline) 1,000 mls @ 75 mls/hr IV ASDIRECTED [facility] Last Admin: 02/13/20 08:31 Dose: 75 mls/hr Documented by: Remdesivir 200 mg/ Sodium (Chloride) 250 mls @ 250 mls/hr IV ONETIME ONE Stop: 02/13/20 11:14 Last Admin: 02/13/20 10:51 Dose: 250 mls/hr Documented by: Remdesivir 100 mg/ Sodium (Chloride) 100 mls @ 100 mls/hr IV Q24H [facility] Stop: 02/17/20 10:59 Last Admin: 02/17/20 10:52 Dose: 100 mls/hr Documented by: Iopamidol (Isovue-370 (76%)) 100 ml IV . DIRECTED [facility] Last Admin: 02/12/20 16:06 Dose: 100 ml Documented by: Lidocaine (Lidoderm 5%) mg TOP Q12HR [facility] Non-Formulary Medication (Tiotropium [Spiriva Handihaler]) 2 puff INH DAILY [facility] Non-Formulary Medication (Risperidone [Risperidal]) 3 mg PO BID [facility] Last Admin: 02/12/20 23:05 Dose: Not Given Documented by: Nystatin (Nystop) 1 gm TOP NOW STA Stop: 02/12/20 19:05 Last Admin: 02/12/20 20:10 Dose: 1 applic Documented by: Ondansetron HCl (Zofran) 4 mg IVPUSH ONETIME ONE Stop: 02/12/20 19:47 Last Admin: 02/12/20 20:10 Dose: 4 mg Documented by: Pneumococcal Polyvalent Vaccine (Pneumovax 23) 0.5 ml IM .ONCE ONE Stop: 02/17/20 10:01 Last Admin: 02/17/20 19:24 Dose: Not Given Documented by: Sodium Chloride (Saline Flush) 10 ml FLUSH ASDIRECTED PRN PRN Reason: Keep Vein Open Last Admin: 02/12/20 16:06 Dose: 10 ml Documented by:
[2020-02-18] MEDS: Albuterol/Ipratropium 4 GM Inhalation Spray INH SCH (09:47)
[2020-02-18] MEDS: Tiotropium Bromide 4 GM Inhalation Spray (2.5mcg/1 dose; 10 doses) INH SCH (09:47)
[2020-02-18] MEDS: risperiDONE 1 MG Tab PO SCH (09:47)
[2020-02-18] MEDS: Lisinopril 10 MG Tab PO SCH (09:48)
[2020-02-18] MEDS: Finasteride 5 MG Tab PO SCH (09:49)
[2020-02-18] MEDS: Dexamethasone 2 MG Tab PO SCH (09:49)
[2020-02-18] MEDS: Clopidogrel 75 MG Tab PO SCH (09:49)
[2020-02-18] MEDS: DULoxetine 30 MG Cap PO SCH (09:49)
[2020-02-18] MEDS: Lidocaine 5% 700 MG Patch TOP SCH (09:51)
== END 2020-02-18 10:43 | disposition hospice, home (50) | DRG 178 ==
LOC: JP.ED 14:43 → JP.2SS 15:43 → OBSVTOIN 02-13 15:43
PROVIDERS: ADMIT Hospitalist; ATTEND Internal Medicine
PROC: XW033E5 Introduction of Remdesivir Anti-infective into Peripheral Vein, Percutaneous Approach, New Technology Group 5 (ICD-10-PCS; principal; 2020-02-13)
PROC: XW13325 Transfusion of Convalescent Plasma (Nonautologous) into Peripheral Vein, Percutaneous Approach, New Technology Group 5 (ICD-10-PCS; 2020-02-13)
PROC: 8E0ZXY6 Isolation (ICD-10-PCS; 2020-02-13)
DX: U07.1 COVID-19 (principal); R09.02 Hypoxemia; G45.9 Transient cerebral ischemic attack, unspecified; R29.818 Other symptoms and signs involving the nervous system; E86.0 Dehydration; I65.21 Occlusion and stenosis of right carotid artery; G30.0 Alzheimer's disease with early onset; Z98.62 Peripheral vascular angioplasty status; Z66 Do not resuscitate; F02.80 Dementia in other diseases classified elsewhere, unspecified severity, without behavioral disturbance, psychotic disturbance, mood disturbance, and anxiety; J44.9 Chronic obstructive pulmonary disease, unspecified; I25.10 Atherosclerotic heart disease of native coronary artery without angina pectoris; G89.29 Other chronic pain; F43.10 Post-traumatic stress disorder, unspecified; M54.9 Dorsalgia, unspecified; M54.5 Low back pain; F02.81 Dementia in other diseases classified elsewhere, unspecified severity, with behavioral disturbance; Z51.5 Encounter for palliative care; Z79.51 Long term (current) use of inhaled steroids; Z79.899 Other long term (current) drug therapy; Z98.890 Other specified postprocedural states; Z88.1 Allergy status to other antibiotic agents; Z99.81 Dependence on supplemental oxygen; Z79.02 Long term (current) use of antithrombotics/antiplatelets; Z87.820 Personal history of traumatic brain injury
CPT/HCPCS: 36415 ×2; 36430; 70450; 70496; 70498; 80048; 80053; 80305; 80307; 81001; 82728; 84484; 85025; 85027; 85379; 86140; 86900; 86901; 93005; 93010; 94640 ×4; 96365; 96372; 96375 ×2; 99219; 99283; 99285; A9270 ×15; G0378 ×3; J1100; J1650; J2405; J7030 ×2; J7050; P9017; Q9967; U0002; 94762; 96374; 99231; 99232; 99239; J1630; J8540